=== PATIENT | male | born 1980 | race African-American/Black ===

== ENCOUNTER 2016-10-22 11:08 | Emergency (ER) | payer OTHER ==
[~2016-10-22] VITALS: Ht 170.2 cm; Wt 88.0 kg
[2016-10-22] VITALS (7 sets, daily range): BP systolic 90–126; BP diastolic 42–79; PULSE 16–133; RESP 16–20; TEMP 98.9; O2SAT 97–98
[~2016-10-22 11:08] MED LIST: ALUM5LIQ PO; DICY1TAB26 PO
[2016-10-22] MEDS ORDERED: LORazepam 2 MG/ML VIAL IV PUSH ONE (11:15)
[2016-10-22] MEDS ORDERED: SODIUM CHLOR 0.9% 1000 ML INJ 1,000 ML IV SCH (11:16)
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
[2016-10-22] MEDS ORDERED: SODIUM CHLORIDE 0.9% FLUSH 5 ML FLUSH IVF PRN (11:30)
[2016-10-22 11:51] LABS: AUTOMATED NEUTROPHIL # 6.8 TH/MM3 (1.8-7.7); BASOPHIL # 0.1 TH/MM3 (0-0.2); BASOPHIL % 0.9 % (0.0-2.0); EOSINOPHIL # 0.1 TH/MM3 (0-0.4); EOSINOPHIL % 0.6 % (0.0-4.0); HEMO FLAGS DIFF FINAL; LYMPH % 28.2 % (9.0-44.0); LYMPHOCYTE # 3.1 TH/MM3 (1.0-4.8); MEAN CELL VOLUME 78.8 FL (80.0-100.0); MEAN CORPUSCULAR HEMOGLOBIN 27.5 PG (27.0-34.0); MEAN CORPUSCULAR HGB CONC 34.9 % (32.0-36.0); MONO % 7.2 % (0.0-8.0); NEUT % 63.1 % (16.0-70.0); PLATELET COUNT 238 TH/MM3 (150-450); RED BLOOD COUNT 5.08 MIL/MM3 (4.50-5.90); RED CELL DISTRIBUTION WIDTH 13.9 % (11.6-17.2); WHITE BLOOD COUNT 10.8 TH/MM3 (4.0-11.0)
[2016-10-22 11:59] LABS: ALT (GPT) 55 U/L (12-78); ANION GAP 12 MEQ/L (5-15); AST (GOT) 63 U/L (15-37); BLOOD UREA NITROGEN 8 MG/DL (7-18); CHLORIDE 106 MEQ/L (98-107); GLOMERULAR FILTRATION RATE 95 ML/MIN (>89); POTASSIUM 3.5 MEQ/L (3.5-5.1); SODIUM (NA) 143 MEQ/L (136-145)
[2016-10-22 12:02] LABS: AMPHETAMINE, URINE NEG (NEG); BARBITURATES, URINE NEG (NEG); COCAINE, URINE POS (NEG)
[2016-10-22 12:12] LABS: ALKALINE PHOSPHATASE 57 U/L (45-117); CREATINE KINASE 2467 U/L (39-308); TOTAL BILIRUBIN ADULT 0.3 MG/DL (0.2-1.0)
[2016-10-22 12:27] LABS: CKMB 9.6 NG/ML (0.5-3.6)
[2016-10-22] MEDS ORDERED: SODIUM CHLOR 0.9% 1000 ML INJ 1,000 ML IV ONE ×2 (12:30)
--- NOTE | 2016-10-22 14:27 | EKG ---
Date Performed: 10/22/2016 Time Performed: 11:36:38 PTAGE: 35 years EKG: SINUS TACHYCARDIA WITH SHORT MN INTERVAL ABNORMAL RHYTHM ECG Compared to prior tracing no s ignificant change PREVIOUS TRACING : 08/11/2015 21.04 DOCTOR: Carrington Kyle Interpretating Date/Time 10/22/2016 14:26:01
[2016-10-22 18:15] LABS: CKMB 7.6 NG/ML (0.5-3.6)
== END 2016-10-22 22:47 | disposition home or self-care (01) ==
LOC: NEPE 11:08
DX: F14.10 Cocaine abuse, uncomplicated (principal); F12.10 Cannabis abuse, uncomplicated; F10.10 Alcohol abuse, uncomplicated; R00.0 Tachycardia, unspecified; Y90.8 Blood alcohol level of 240 mg/100 ml or more
CPT/HCPCS: 80053; 80307; 80320; 82550; 82552; 85025; 93005; 96361; 96374; 99284; J2060; J7030

== ENCOUNTER 2016-11-28 00:10 | Emergency (ER) | payer SELFPAY ==
[~2016-11-28] VITALS: Ht 170.2 cm; Wt 86.0 kg
[2016-11-28 00:12] VITALS: BP 151/88; PULSE 122; RESP 20; TEMP 98.8; O2SAT 96
[2016-11-28] MEDS ORDERED: ACETAMINOPHEN/HYDROcodone 325 MG/5 MG TAB PO ONE (01:30)
[2016-11-28] MEDS ORDERED: ONDANSETRON ODT 4 MG TAB PO ONE (01:30)
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
--- NOTE | 2016-11-28 02:08 | RADRPT ---
EXAM DATE/TIME: 11/28/2016 01:35 [facility] COMPARISON: No previous studies available for comparison. INDICATIONS : Left knee pain. MEDICAL HISTORY : None. SURGICAL HISTORY : None. ENCOUNTER: Initial ACUITY: 1 day PAIN SCORE: 10/10 LOCATION: Left knee. FINDINGS: Four view examination of the left knee demonstrates no evidence of fracture or dislocation. Bony min eralization is normal. The articular surfaces are intact. The suprapatellar soft tissues have a nor mal configuration. CONCLUSION: No acute disease. Rayshawn Banks MD on November 28, 2016 at 2:07 Board Certified Radiologist. This report was verified electronically.
--- NOTE | 2016-11-28 02:09 | RADRPT ---
EXAM DATE/TIME: 11/28/2016 01:43 [facility] COMPARISON: No previous studies available for comparison. INDICATIONS : Left hip pain. MEDICAL HISTORY : None. SURGICAL HISTORY : None. ENCOUNTER: Initial ACUITY: 1 day PAIN SCORE: 3/10 LOCATION: Left hip FINDINGS: Examination of the left hip was performed with AP Pelvis. The primary and secondary trabecular patte rn of the femoral neck is intact. The hip joint is of normal width without significant sclerosis or bony hypertrophy. The acetabulum is grossly intact. CONCLUSION: No acute disease. Rayshawn Banks MD on November 28, 2016 at 2:07 Board Certified Radiologist. This report was verified electronically.
[2016-11-28] MEDS ORDERED: NAPR500 PO (02:18)
[2016-11-28 02:44] VITALS: RESP 14
== END 2016-11-28 02:44 | disposition home or self-care (01) ==
LOC: NEPB 00:10
DX: S83.92XA Sprain of unspecified site of left knee, initial encounter (principal); M25.552 Pain in left hip; Z72.0 Tobacco use; Z86.79 Personal history of other diseases of the circulatory system; Z86.59 Personal history of other mental and behavioral disorders; Z87.19 Personal history of other diseases of the digestive system; Y93.83 Activity, rough housing and horseplay
CPT/HCPCS: 73502; 73564; 99283; E0113; L1830

== ENCOUNTER 2016-12-10 21:52 | Emergency (ER) | payer OTHER ==
[~2016-12-10] VITALS: Ht 162.6 cm; Wt 70.0 kg
[~2016-12-10 21:52] MED LIST changes: -ALUM5LIQ PO; -DICY1TAB26 PO; +NAPR500 PO
[2016-12-10 22:10] VITALS: BP 132/108; PULSE 99; RESP 18; TEMP 98.1; O2SAT 100
[2016-12-10 22:55] LABS: AUTOMATED NEUTROPHIL # 7.4 TH/MM3 (1.8-7.7); BASOPHIL # 0.2 TH/MM3 (0-0.2); BASOPHIL % 1.5 % (0.0-2.0); EOSINOPHIL % 0.4 % (0.0-4.0); HEMATOCRIT 45.6 % (39.0-51.0); HEMO FLAGS DIFF FINAL; LYMPH % 31.6 % (9.0-44.0); LYMPHOCYTE # 3.8 TH/MM3 (1.0-4.8); MEAN CELL VOLUME 84.3 FL (80.0-100.0); MEAN CORPUSCULAR HGB CONC 33.3 % (32.0-36.0); MONO % 4.7 % (0.0-8.0); NEUT % 61.8 % (16.0-70.0); PLATELET COUNT 284 TH/MM3 (150-450); RED BLOOD COUNT 5.41 MIL/MM3 (4.50-5.90); RED CELL DISTRIBUTION WIDTH 15.1 % (11.6-17.2); WHITE BLOOD COUNT 11.9 TH/MM3 (4.0-11.0)
[2016-12-10 23:18] LABS: AMPHETAMINE, URINE NEG (NEG); BARBITURATES, URINE NEG (NEG); COCAINE, URINE POS (NEG)
[2016-12-10 23:20] VITALS: BP 148/98; PULSE 89; RESP 18; O2SAT 98
[2016-12-10 23:25] LABS: ALKALINE PHOSPHATASE 48 U/L (45-117); ALT (GPT) 42 U/L (12-78); ANION GAP 11 MEQ/L (5-15); AST (GOT) 46 U/L (15-37); BICARBONATE 26.1 MEQ/L (21.0-32.0); BLOOD UREA NITROGEN 7 MG/DL (7-18); CHLORIDE 105 MEQ/L (98-107); GLOMERULAR FILTRATION RATE 100 ML/MIN (>89); POTASSIUM 3.6 MEQ/L (3.5-5.1); SODIUM (NA) 142 MEQ/L (136-145); TOTAL BILIRUBIN ADULT 0.3 MG/DL (0.2-1.0)
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
[2016-12-11 03:00] VITALS: BP 138/74; PULSE 87; RESP 18; O2SAT 98
[2016-12-11] MEDS ORDERED: ACETAMINOPHEN 325 MG TAB PO ONE (04:30)
[2016-12-11 06:24] VITALS: BP 145/88; PULSE 82; RESP 18; O2SAT 99
[2016-12-11 09:41] VITALS: BP 124/64; PULSE 82; RESP 16; O2SAT 98
[2016-12-11 11:19] VITALS: BP 109/52; PULSE 92; RESP 18; TEMP 96.5; O2SAT 97
[2016-12-11 17:43] VITALS: BP 120/55; PULSE 68; RESP 18; TEMP 96.7; O2SAT 98
[2016-12-11 22:29] VITALS: BP 121/60; PULSE 53; RESP 17; O2SAT 98
[2016-12-12 02:28] VITALS: BP 118/59; PULSE 59; RESP 19; O2SAT 98
[2016-12-12 06:34] VITALS: BP 130/76; PULSE 53; RESP 18; O2SAT 97
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
[2016-12-13] MEDS ORDERED: IBUP-232 PO (11:08)
== END 2016-12-12 10:12 | disposition home or self-care (01) ==
LOC: NEPA 21:52 → NEPJ 12-12 10:12
DX: F39 Unspecified mood [affective] disorder (principal); F19.10 Other psychoactive substance abuse, uncomplicated; F43.25 Adjustment disorder with mixed disturbance of emotions and conduct; R01.1 Cardiac murmur, unspecified; Z72.0 Tobacco use; F14.90 Cocaine use, unspecified, uncomplicated
CPT/HCPCS: 80053; 80307; 80320; 85025; 99283

== ENCOUNTER 2016-12-13 05:33 | Emergency (ER) | payer SELFPAY ==
[~2016-12-13] VITALS: Ht 170.2 cm; Wt 70.0 kg
[2016-12-13 05:35] VITALS: BP 164/76; PULSE 117; RESP 23; TEMP 99.6; O2SAT 96
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
[2016-12-13] MEDS ORDERED: DIPHTH/TETANUS/ACEL PERTUSSIS (BOOSTER) 0.5 ML VIAL/PFS IM ONE (06:45)
[2016-12-13] MEDS ORDERED: ceFAZolin 2 GM PREMIX 50 ML IV ONE (06:45)
[2016-12-13] MEDS ORDERED: ONDANSETRON HCL 4 MG/2 ML VIAL IV ONE (06:45)
[2016-12-13] MEDS ORDERED: MORPHINE SULFATE 4 MG/ML INJ IV PUSH ONE (06:45)
[2016-12-13] MEDS ORDERED: SODIUM CHLOR 0.9% 1000 ML INJ 1,000 ML IV ONE (06:45)
[2016-12-13 06:53] LABS: AUTOMATED NEUTROPHIL # 18.6 TH/MM3 (1.8-7.7); BASOPHIL # 0.1 TH/MM3 (0-0.2); BASOPHIL % 0.6 % (0.0-2.0); EOSINOPHIL # 0.1 TH/MM3 (0-0.4); EOSINOPHIL % 0.5 % (0.0-4.0); HEMATOCRIT 46.2 % (39.0-51.0); HEMO FLAGS DIFF FINAL; LYMPH % 10.7 % (9.0-44.0); LYMPHOCYTE # 2.4 TH/MM3 (1.0-4.8); MEAN CELL VOLUME 85.5 FL (80.0-100.0); MEAN CORPUSCULAR HGB CONC 32.7 % (32.0-36.0); MONO % 4.2 % (0.0-8.0); PLATELET COUNT 294 TH/MM3 (150-450); RED CELL DISTRIBUTION WIDTH 15.2 % (11.6-17.2); WHITE BLOOD COUNT 22.1 TH/MM3 (4.0-11.0)
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
[2016-12-13 07:06] LABS: APTT (PATIENT) 24.9 SEC (24.3-30.1); INTERNATIONAL NORMALIZED RATIO 1.2 RATIO; PROTHROMBIN TIME - PATIENT 13.8 SEC (9.8-11.6)
[2016-12-13 07:10] LABS: ALKALINE PHOSPHATASE 50 U/L (45-117); TOTAL BILIRUBIN ADULT 0.3 MG/DL (0.2-1.0)
[2016-12-13 07:11] LABS: ALT (GPT) 43 U/L (12-78); ANION GAP 18 MEQ/L (5-15); AST (GOT) 36 U/L (15-37); BICARBONATE 17.9 MEQ/L (21.0-32.0); BLOOD UREA NITROGEN 6 MG/DL (7-18); CHLORIDE 104 MEQ/L (98-107); GLOMERULAR FILTRATION RATE 86 ML/MIN (>89); POTASSIUM 3.7 MEQ/L (3.5-5.1); SODIUM (NA) 140 MEQ/L (136-145)
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
[2016-12-13 08:57] VITALS: BP 127/86; PULSE 95; RESP 18; O2SAT 100
--- NOTE | 2016-12-13 10:14 | PD ---
Physical Exam Narrative Received sign out from previous team to reevaluate patient. Please see previous provider's note for further details. Pt reevaluated at bedside and still unable to fully open his eye due to eyelid swelling. From what I can see, I do not see hyphema but it was very limited. Bedside ocular US was completed by me and I can see that pt is able to move his extroocular muscles. There is no retinal or lens detachment. CXR negative. Xray pelvis negative. Xray right tib/fib negative. CT cspine negative. CT brain showed preseptal swelling over left globe. Globe is intact. No acute ICH. CT MF showed preseptal swelling as well. Chronic sinusitis. No acute fracture. Pt was given zofran, IVF NS, and morphine 4mg IV by previous team. Instructed pt to follow up with ophthalmology as outpatient. Return precautions given. Data Data Last Documented VS Vital Signs Date Time Temp Pulse Resp B/P Pulse Ox O2 Delivery O2 Flow Rate FiO2 12/13/16 08:57 95 18 127/86 100 Room Air 12/13/16 05:[address] Brain W/O Iv Contrast(Rout) (12/13/16 05:54) Ct Cerv Spine W/O Contrast (12/13/16 05:54) Ct Facial Bones W/O Iv Cont (12/13/16 05:54) Complete Blood Count With Diff (12/13/16 06:34) Comprehensive Metabolic Panel (12/13/16 06:34) Prothrombin Time / Inr (Pt) (12/13/16 06:34) Act Partial Throm Time (Ptt) (12/13/16 06:34) Urinalysis - C+S If Indicated (12/13/16 06:34) Chest, Single Ap (12/13/16 06:34) Iv Access Insert/Monitor (12/13/16 06:34) Ecg Monitoring (12/13/16 06:34) Oximetry (12/13/16 06:34) Drug Screen, Random Urine (12/13/16 06:34) Alcohol (Ethanol) (12/13/16 06:34) Ondansetron Inj (Zofran Inj) (12/13/16 06:45) Sodium Chlor 0.9% 1000 Ml Inj (Ns 1000 M (12/13/16 06:45) Morphine Inj (Morphine Inj) (12/13/16 06:45) Pelvis, Ap Only (Routine) (12/13/16 06:34) Cefazolin 2 Gm Premix (Ancef 2 Gm Premix (12/13/16 06:45) Xwli-Nml-Rfkvid (Booster) Inj (Boostrix (12/13/16 06:45) Tibia/Fibula (Ap/Lat) (12/13/16 06:34) Ice / Cold Pack PRN (12/13/16 06:46) Ed Poc Ultrasound (12/13/16 ) Labs Laboratory Tests Test 12/13/16 06:00 White Blood Count 22.1 TH/MM3 Red Blood Count 5.40 MIL/MM3 Hemoglobin 15.1 GM/DL Hematocrit 46.2 % Mean Corpuscular Volume 85.5 FL Mean Corpuscular Hemoglobin 28.0 PG Mean Corpuscular Hemoglobin 32.7 % Concent Red Cell Distribution Width 15.2 % Platelet Count 294 TH/MM3 Mean Platelet Volume 8.7 FL Neutrophils (%) (Auto) 84.0 % Lymphocytes (%) (Auto) 10.7 % Monocytes (%) (Auto) 4.2 % Eosinophils (%) (Auto) 0.5 % Basophils (%) (Auto) 0.6 % Neutrophils # (Auto) 18.6 TH/MM3 Lymphocytes # (Auto) 2.4 TH/MM3 Monocytes # (Auto) 0.9 TH/MM3 Eosinophils # (Auto) 0.1 TH/MM3 Basophils # (Auto) 0.1 TH/MM3 CBC Comment DIFF FINAL Differential Comment Prothrombin Time 13.8 SEC Prothromb Time International 1.2 RATIO Ratio Activated Partial 24.9 SEC Thromboplast Time Sodium Level 140 MEQ/L Potassium Level 3.7 MEQ/L Chloride Level 104 MEQ/L Carbon Dioxide Level 17.9 MEQ/L Anion Gap 18 MEQ/L Blood Urea Nitrogen 6 MG/DL Creatinine 1.18 MG/DL Estimat Glomerular Filtration 86 ML/MIN Rate Random Glucose 80 MG/DL Calcium Level 8.6 MG/DL Total Bilirubin 0.3 MG/DL Aspartate Amino Transf 36 U/L (AST/SGOT) Alanine Aminotransferase 43 U/L (ALT/SGPT) Alkaline Phosphatase 50 U/L Total Protein 8.1 GM/DL Albumin 4.1 GM/DL Ethyl Alcohol Level 142 MG/DL MDM Supervised Visit with CLAYTON: No Procedures Procedure Narrative Emergency department ocular ultrasound was performed with patient consent. Linear probe was used in the transverse and sagittal views of the orbit without evidence of retinal detachment, vitreous hemorrhage, or lens dislocation. Diagnosis Primary Impression: Head injury due to trauma Qualified Code: S09.90XA - Head injury due to trauma, initial encounter Additional Impression: Left facial swelling Referrals: Vanita Guzman MD 1 day Patient Instructions: General Instructions Departure Forms: Tests/Procedures Additional Instruction: Please follow up with ophthalmology as outpatient in 1-2 days. Return to the ED if symptoms worsen. Med/Other Pt SpecificInfo: Prescription(s) given Scripts Ibuprofen 600 Mg [id number] Mg PO Q8HR PRN (PAIN) #20 TAB Ref 0 Prov:Angeles Fox DO 12/13/16 Disposition: 01 DISCHARGE HOME Condition: Stable Angeles Fox DO Dec 13, 2016 10:14
[2016-12-13] MEDS ORDERED: IBUP-232 PO (11:08)
== END 2016-12-13 11:54 | disposition home or self-care (01) ==
LOC: NEPE 05:33
DX: S09.90XA Unspecified injury of head, initial encounter (principal); Z23 Encounter for immunization; R51 Headache; M54.2 Cervicalgia; R01.1 Cardiac murmur, unspecified; F17.210 Nicotine dependence, cigarettes, uncomplicated; Y09 Assault by unspecified means
CPT/HCPCS: 70450; 70486; 71010; 72125; 72170; 73590; 80053; 80307; 85025; 85610; 85730; 90471; 90715; 96374; 96375; 99284; J0690; J2270; J2405; J7030; L3260

== ENCOUNTER 2017-01-11 02:55 | Emergency (ER) | payer SELFPAY ==
[~2017-01-11] VITALS: Ht 170.2 cm; Wt 73.0 kg
[~2017-01-11 02:55] MED LIST changes: +IBUP-232 PO; -NAPR500 PO
[2017-01-11 02:57] VITALS: BP 163/91; PULSE 128; RESP 22; TEMP 98.4; O2SAT 98
[2017-01-11 03:17] VITALS: BP 161/88; PULSE 110; RESP 18; TEMP 98.8; O2SAT 97
[2017-01-11] MEDS ORDERED: SODIUM CHLOR 0.9% 1000 ML INJ 1,000 ML IV SCH (03:58)
[2017-01-11] MEDS ORDERED: ONDANSETRON HCL 4 MG/2 ML VIAL IVP ONE (04:00)
[2017-01-11] MEDS ORDERED: FAMOTIDINE 20 MG/2 ML VIAL IV PUSH ONE (04:00)
[2017-01-11] MEDS ORDERED: ALUMINUM/MAGNESIUM/SIMETH 30 ML CUP PO ONE (04:00)
[2017-01-11] MEDS ORDERED: SODIUM CHLORIDE 0.9% FLUSH 10 ML FLUSH IV FLUSH PRN (04:00)
[2017-01-11] MEDS ORDERED: LIDOCAINE VISCOUS 2% SOLN 15 ML UDC PO ONE (04:00)
[2017-01-11 04:22] LABS: AUTOMATED NEUTROPHIL # 7.5 TH/MM3 (1.8-7.7); BASOPHIL # 0.1 TH/MM3 (0-0.2); BASOPHIL % 0.6 % (0.0-2.0); EOSINOPHIL # 0.3 TH/MM3 (0-0.4); EOSINOPHIL % 2.6 % (0.0-4.0); HEMATOCRIT 46.1 % (39.0-51.0); HEMO FLAGS DIFF FINAL; LYMPH % 28.9 % (9.0-44.0); LYMPHOCYTE # 3.5 TH/MM3 (1.0-4.8); MEAN CELL VOLUME 84.8 FL (80.0-100.0); MEAN CORPUSCULAR HEMOGLOBIN 27.8 PG (27.0-34.0); MEAN CORPUSCULAR HGB CONC 32.8 % (32.0-36.0); MONO % 6.5 % (0.0-8.0); NEUT % 61.4 % (16.0-70.0); PLATELET COUNT 230 TH/MM3 (150-450); RED BLOOD COUNT 5.44 MIL/MM3 (4.50-5.90); RED CELL DISTRIBUTION WIDTH 14.7 % (11.6-17.2); WHITE BLOOD COUNT 12.2 TH/MM3 (4.0-11.0)
[2017-01-11 04:24] LABS: APTT (PATIENT) 27.1 SEC (24.3-30.1); INTERNATIONAL NORMALIZED RATIO 1.1 RATIO; PROTHROMBIN TIME - PATIENT 11.7 SEC (9.8-11.6)
--- NOTE | 2017-01-11 04:54 | PD ---
HPI Chief Complaint: Abdominal Pain Time Seen by Provider: 03:26 Travel History International Travel<30 days: No Contact w/Intl Traveler<30days: No Traveled to known affect area: No History of Present Illness HPI Patient is a 36 year old male who comes in complaining of abdominal pain. He says he has 2 ulcers and they are causing him pain. He says the pain has been going on for the past 4 days. He says he tried taking some Tums, but this didn' t help. He also took Goody powder, which she says made it worse. He also reports using cocaine and Dilaudid. He says he's had some nausea and vomiting. He says he has had black stools. He denies fever or chills. PFSH Past Medical History Arthritis: No Asthma: No Anxiety: Yes Heart Rhythm Problems: No Cardiovascular Problems: Yes (HEART MURMUR) High Cholesterol: No Chest Pain: No Congestive Heart Failure: No COPD: No Cerebrovascular Accident: No Diabetes: No Diminished Hearing: No Gastrointestinal Disorders: Yes (GASTRITIS) GERD: No Genitourinary: No Headaches: No Hepatitis: No Hiatal Hernia: No Hypertension: No Kidney Stones: No Musculoskeletal: No Neurologic: No Psychiatric: Yes Reproductive: No Respiratory: No Immunizations Current: Yes Migraines: No Myocardial Infarction: No Renal Failure: No Seizures: No Sleep Apnea: No Ulcer: Yes (stomach) PNEUMOCCOCAL Vaccine (Year): 2 Past Surgical History Abdominal Surgery: No Appendectomy: No Cardiac Surgery: No Cholecystectomy: No Ear Surgery: No Endocrine Surgery: No Eye Surgery: No Genitourinary Surgery: No Neurologic Surgery: No Oral Surgery: No Thoracic Surgery: No Other Surgery: Yes (RIGHT WRIST R/T INJURY) Social History Alcohol Use: Yes (2 fifths a day and 2 cases a day) Tobacco Use: Yes Substance Use: Yes (cocaine daily, marijuana daily, ) Allergies-Medications (Allergen,Severity, Reaction): Coded Allergies: No Known Allergies (Verified , 01/11/17) Reported Meds & Prescriptions Reported Meds & Active Scripts Active Zantac (Ranitidine HCl) 150 Mg Tab 150 Mg PO BID Ibuprofen 600 Mg Tab 600 Mg PO Q8HR PRN Review of Systems Except as stated in HPI: all other systems reviewed are Neg General / Constitutional: No: Fever, Chills Cardiovascular: No: Chest Pain or Discomfort Respiratory: No: Shortness of Breath Gastrointestinal: Positive: Nausea, Vomiting, Abdominal Pain Musculoskeletal: No: Edema, Pain Skin: No Rash, No Change in Pigmentation Neurologic: No: Weakness, Dizziness Physical Exam Narrative GENERAL: Awake and alert, in no acute distress. SKIN: Focused skin assessment warm/dry. HEAD: Atraumatic. Normocephalic. EYES: Pupils equal and round. No scleral icterus. ENT: No nasal bleeding or discharge. Mucous membranes pink and moist. NECK: Trachea midline. No JVD. CARDIOVASCULAR: Regular rate and rhythm. No murmur appreciated. RESPIRATORY: No accessory muscle use. Clear to auscultation. Breath sounds equal bilaterally. GASTROINTESTINAL: Abdomen soft, nondistended. Mild diffuse tenderness to palpation. No rebound or guarding. RECTAL: performed in the presence of male prawn trawler hand. No fissure, hemorrhoids or masses. Brown stool. MUSCULOSKELETAL: No obvious deformities. No clubbing. No cyanosis. No edema. NEUROLOGICAL: Awake and alert. No obvious cranial nerve deficits. Motor grossly within normal limits. Normal speech. PSYCHIATRIC: Appropriate mood and affect; insight and judgment normal. Data Data Last Documented VS Vital Signs Date Time Temp Pulse Resp B/P Pulse Ox O2 Delivery O2 Flow Rate FiO2 01/11/17 05:53 98.2 88 16 160/88 99 01/11/17 03:17 Room Air Orders Basic Metabolic Panel (Bmp) (01/11/17 03:58) Complete Blood Count With Diff (01/11/17 03:58) Lipase (01/11/17 03:58) Prothrombin Time / Inr (Pt) (01/11/17 03:58) Act Partial Throm Time (Ptt) (01/11/17 03:58) Iv Access Insert/Monitor (01/11/17 03:58) Ecg Monitoring (01/11/17 03:58) Oximetry (01/11/17 03:58) Ondansetron Inj (Zofran Inj) (01/11/17 04:00) Sodium Chlor 0.9% 1000 Ml Inj (Ns 1000 M (01/11/17 03:58) Sodium Chloride 0.9% Flush (Ns Flush) (01/11/17 04:00) Famotidine Inj (Pepcid Inj) (01/11/17 04:00) Al-Mag Hy-Si 40-40-4 Mg/Ml Liq (Mag-Al P (01/11/17 04:00) Lidocaine 2% Viscous (Xylocaine 2% Visco (01/11/17 04:00) Labs Laboratory Tests Test 01/11/17 04:00 White Blood Count 12.2 TH/MM3 Red Blood Count 5.44 MIL/MM3 Hemoglobin 15.1 GM/DL Hematocrit 46.1 % Mean Corpuscular Volume 84.8 FL Mean Corpuscular Hemoglobin 27.8 PG Mean Corpuscular Hemoglobin 32.8 % Concent Red Cell Distribution Width 14.7 % Platelet Count 230 TH/MM3 Mean Platelet Volume 8.6 FL Neutrophils (%) (Auto) 61.4 % Lymphocytes (%) (Auto) 28.9 % Monocytes (%) (Auto) 6.5 % Eosinophils (%) (Auto) 2.6 % Basophils (%) (Auto) 0.6 % Neutrophils # (Auto) 7.5 TH/MM3 Lymphocytes # (Auto) 3.5 TH/MM3 Monocytes # (Auto) 0.8 TH/MM3 Eosinophils # (Auto) 0.3 TH/MM3 Basophils # (Auto) 0.1 TH/MM3 CBC Comment DIFF FINAL Differential Comment Prothrombin Time 11.7 SEC Prothromb Time International 1.1 RATIO Ratio Activated Partial 27.1 SEC Thromboplast Time Sodium Level 142 MEQ/L Potassium Level 3.8 MEQ/L Chloride Level 108 MEQ/L Carbon Dioxide Level 22.5 MEQ/L Anion Gap 12 MEQ/L Blood Urea Nitrogen 10 MG/DL Creatinine 0.94 MG/DL Estimat Glomerular Filtration 111 ML/MIN Rate Random Glucose 82 MG/DL Calcium Level 8.2 MG/DL Lipase 269 U/L [facility] Medical Decision Making Medical Screen Exam Complete: Yes Emergency Medical Condition: Yes Differential Diagnosis gastritis vs GERD vs pancreatitis Narrative Course Patient is a 36 year old male who comes in complaining of abdominal pain. Exam shows mild diffuse tenderness. IV established, labs sent. Labs show no acute abnormalities. Given IVF, GI cocktail. Patient ate without any problems. Discharged with prescription for Zantac. Advised to avoid spicy foods, caffeine , drugs and alcohol. Advised to drink plenty of fluids. Advised to follow up with his doctors. Advised to return to the ED as needed for any worsening symptoms. Diagnosis Primary Impression: Abdominal pain Qualified Code: R10.13 - Epigastric pain Patient Instructions: Abdominal Pain (ED), Gastroesophageal Reflux Disease (ED) , General Instructions Additional Instructions: Follow up with a primary care doctor. Eat a bland diet. Take Zantac for acid reflux. Return to the ED as needed for any worsening symptoms. Scripts Ranitidine (Zantac)150 Mg [id number] Mg PO BID #60 TAB Ref 0 Prov:Neha West MD 01/11/17 Disposition: 01 DISCHARGE HOME Condition: Stable Neha West MD Jan 11, 2017 04:54
[2017-01-11 04:59] LABS: BICARBONATE 22.5 MEQ/L (21.0-32.0); POTASSIUM 3.8 MEQ/L (3.5-5.1)
[2017-01-11] MEDS ORDERED: ZANT150T2 PO (05:46)
[2017-01-11 05:53] VITALS: BP 160/88; TEMP 98.2
== END 2017-01-11 06:06 | disposition home or self-care (01) ==
LOC: NEPC 02:55
DX: R10.13 Epigastric pain (principal)
CPT/HCPCS: 80048; 83690; 85025; 85610; 85730; 96361; 96374; 96375; 99284; J2405; J7030

== ENCOUNTER 2017-02-24 03:59 | Emergency (ER) | payer SELFPAY ==
[~2017-02-24] VITALS: Ht 172.7 cm; Wt 75.0 kg
[~2017-02-24 03:59] MED LIST changes: +ZANT150T2 PO
[2017-02-24 04:04] VITALS: BP 134/78; PULSE 116; RESP 16; TEMP 90.4; TEMP 98.4; O2SAT 95
[2017-02-24] MEDS ORDERED: TETANUS/DIPHTHERIA TOXOID ADULT 0.5 ML VIAL IM ONE (04:30)
[2017-02-24] MEDS ORDERED: LIDOCAINE HCL 1% 50 ML VIAL INFIL ONE (04:30)
[2017-02-24 04:45] LABS: AUTOMATED NEUTROPHIL # 8.4 TH/MM3 (1.8-7.7); BASOPHIL # 0.1 TH/MM3 (0-0.2); EOSINOPHIL # 0.3 TH/MM3 (0-0.4); EOSINOPHIL % 2.5 % (0.0-4.0); HEMATOCRIT 46.4 % (39.0-51.0); HEMO FLAGS DIFF FINAL; LYMPH % 30.7 % (9.0-44.0); LYMPHOCYTE # 4.3 TH/MM3 (1.0-4.8); MEAN CELL VOLUME 83.5 FL (80.0-100.0); MEAN CORPUSCULAR HEMOGLOBIN 28.1 PG (27.0-34.0); MEAN CORPUSCULAR HGB CONC 33.6 % (32.0-36.0); MONO % 5.4 % (0.0-8.0); NEUT % 60.4 % (16.0-70.0); PLATELET COUNT 273 TH/MM3 (150-450); RED BLOOD COUNT 5.55 MIL/MM3 (4.50-5.90); RED CELL DISTRIBUTION WIDTH 15.6 % (11.6-17.2); WHITE BLOOD COUNT 13.9 TH/MM3 (4.0-11.0)
[2017-02-24 05:06] LABS: ALKALINE PHOSPHATASE 65 U/L (45-117); TOTAL BILIRUBIN ADULT 0.2 MG/DL (0.2-1.0)
[2017-02-24 05:07] LABS: ALT (GPT) 58 U/L (12-78); ANION GAP 12 MEQ/L (5-15); AST (GOT) 69 U/L (15-37); BICARBONATE 26.3 MEQ/L (21.0-32.0); BLOOD UREA NITROGEN 13 MG/DL (7-18); CHLORIDE 108 MEQ/L (98-107); GLOMERULAR FILTRATION RATE 78 ML/MIN (>89); SODIUM (NA) 146 MEQ/L (136-145)
[2017-02-24 05:08] LABS: ACETAMINOPHEN LESS THAN 2.0 MCG/ML (10.0-30.0)
--- NOTE | 2017-02-24 05:09 | RADRPT ---
EXAM DATE/TIME: 02/24/2017 04:36 [place] COMPARISON: No previous studies available for comparison. INDICATIONS : Laceration to palm of hand and finger. MEDICAL HISTORY : None. SURGICAL HISTORY : None. 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 No acute fracture or dislocation. No radiopaq ue foreign body. CONCLUSION: 1. No acute findings. Skyler Zapien MD on February 24, 2017 at 5:06 Board Certified Radiologist. This report was verified electronically.
--- NOTE | 2017-02-24 05:23 | PD ---
Physical Exam Time Seen by Provider: 05:22 Data Data Last Documented VS Vital Signs Date Time Temp Pulse Resp B/P Pulse Ox O2 Delivery O2 Flow Rate FiO2 02/24/17 04:04 98.4 116 16 134/78 95 Room Air Orders Complete Blood Count With Diff (02/24/17 04:27) Comprehensive Metabolic Panel (02/24/17 04:27) Psych Screen (02/24/17 04:27) Drug Screen, Random Urine (02/24/17 04:27) Alcohol (Ethanol) (02/24/17 04:27) Salicylates (Aspirin) (02/24/17 04:27) Tylenol (Acetaminophen) (02/24/17 04:27) Tetanus/Diphtheria Tox Adult (Tetanus/Di (02/24/17 04:30) Hand, Complete ([id number]) (02/24/17 ) Lidocaine 1% Inj (50 Ml) (Xylocaine 1% I (02/24/17 04:30) Labs Laboratory Tests Test 02/24/17 04:35 White Blood Count 13.9 TH/MM3 Red Blood Count 5.55 MIL/MM3 Hemoglobin 15.6 GM/DL Hematocrit 46.4 % Mean Corpuscular Volume 83.5 FL Mean Corpuscular Hemoglobin 28.1 PG Mean Corpuscular Hemoglobin 33.6 % Concent Red Cell Distribution Width 15.6 % Platelet Count 273 TH/MM3 Mean Platelet Volume 8.0 FL Neutrophils (%) (Auto) 60.4 % Lymphocytes (%) (Auto) 30.7 % Monocytes (%) (Auto) 5.4 % Eosinophils (%) (Auto) 2.5 % Basophils (%) (Auto) 1.0 % Neutrophils # (Auto) 8.4 TH/MM3 Lymphocytes # (Auto) 4.3 TH/MM3 Monocytes # (Auto) 0.8 TH/MM3 Eosinophils # (Auto) 0.3 TH/MM3 Basophils # (Auto) 0.1 TH/MM3 CBC Comment DIFF FINAL Differential Comment Sodium Level 146 MEQ/L Potassium Level 4.0 MEQ/L Chloride Level 108 MEQ/L Carbon Dioxide Level 26.3 MEQ/L Anion Gap 12 MEQ/L Blood Urea Nitrogen 13 MG/DL Creatinine 1.28 MG/DL Estimat Glomerular Filtration 78 ML/MIN Rate Random Glucose 95 MG/DL Calcium Level 8.4 MG/DL Total Bilirubin 0.2 MG/DL Aspartate Amino Transf 69 U/L (AST/SGOT) Alanine Aminotransferase 58 U/L (ALT/SGPT) Alkaline Phosphatase 65 U/L Total Protein 8.0 GM/DL Albumin 3.9 GM/DL Salicylates Level 2.3 MG/DL Acetaminophen Level LESS THAN 2.0 MCG/ML Ethyl Alcohol Level 336 MG/DL MDM Medical Record Reviewed: Yes Supervised Visit with CLAYTON: No Procedures Procedure Narrative LACERATION LOCATION: Right fifth digit LENGTH: 1 cm NUMBER OF STITCHES/BRODY: 1 horizontal mattress REPAIR: The area of the laceration was prepped with Betadine and sterilely draped. The laceration was infiltrated with 1% lidocaine without epinephrine. The wound was copiously irrigated and explored without evidence of foreign body , tendon injury or neurovascular injury. The wound was closed using 4-0 Prolene. This was a single layer repair. A sterile dressing was applied. The patient was advised to keep the dressing clean and dry. Patient tolerated the procedure well. LACERATION LOCATION: Right palmar surface LENGTH: 1 cm NUMBER OF STITCHES/BRODY: 1 suture REPAIR: The area of the laceration was prepped with Betadine and sterilely draped. The laceration was infiltrated with 1% lidocaine without epinephrine. The wound was copiously irrigated and explored without evidence of foreign body , tendon injury or neurovascular injury. The wound was closed using 4-0 Prolene. This was a single layer repair. A sterile dressing was applied. The patient was advised to keep the dressing clean and dry. Patient tolerated the procedure well. Condition: Stable Marco ARadha FAIR February 24, 2017 05:23
--- NOTE | 2017-02-24 05:31 | PD ---
HPI Chief Complaint: Laceration/Skin Injury Time Seen by Provider: 04:27 Travel History International Travel<30 days: No Contact w/Intl Traveler<30days: No Traveled to known affect area: No History of Present Illness HPI 36-year-old male arrives to the ER after he cut his right fifth finger with a knife. He was trying to hurt himself. He drank alcohol tonight. He states it' s sacrilegious to take his own life and so he has been hurting himself. He states he does not want to live. R fifth finger is constantly painful. He states the pain is severe. he denies drug use. PFSH Past Medical History Arthritis: No Asthma: No Anxiety: Yes Heart Rhythm Problems: No Cardiovascular Problems: Yes (HEART MURMUR) High Cholesterol: No Chest Pain: No Congestive Heart Failure: No COPD: No Cerebrovascular Accident: No Diabetes: No Diminished Hearing: No Gastrointestinal Disorders: Yes (GASTRITIS) GERD: No Genitourinary: No Headaches: No Hepatitis: No Hiatal Hernia: No Hypertension: No Kidney Stones: No Musculoskeletal: No Neurologic: No Psychiatric: Yes Reproductive: No Respiratory: No Immunizations Current: Yes Migraines: No Myocardial Infarction: No Renal Failure: No Seizures: No Sleep Apnea: No Ulcer: Yes (stomach) Influenza Vaccination: No PNEUMOCCOCAL Vaccine (Year): 2 Past Surgical History Abdominal Surgery: No Appendectomy: No Cardiac Surgery: No Cholecystectomy: No Ear Surgery: No Endocrine Surgery: No Eye Surgery: No Genitourinary Surgery: No Neurologic Surgery: No Oral Surgery: No Thoracic Surgery: No Other Surgery: Yes (RIGHT WRIST R/T INJURY) Social History Alcohol Use: Yes (2 fifths a day and 2 cases a day) Tobacco Use: Yes Substance Use: Yes (cocaine daily, marijuana daily, ) Allergies-Medications (Allergen,Severity, Reaction): Coded Allergies: No Known Allergies (Verified , 01/11/17) Reported Meds & Prescriptions Reported Meds & Active Scripts Active Zantac (Ranitidine HCl) 150 Mg Tab 150 Mg PO BID Ibuprofen 600 Mg Tab 600 Mg PO Q8HR PRN Review of Systems Except as stated in HPI: all other systems reviewed are Neg Physical Exam Narrative GENERAL: 36 yo M, WNWD, NAD SKIN: Warm and dry. HEAD: Atraumatic. Normocephalic. EYES: Pupils equal and round. No scleral icterus. No injection or drainage. ENT: No nasal bleeding or discharge. Mucous membranes pink and moist. NECK: Trachea midline. No JVD. CARDIOVASCULAR: Regular rate and rhythm. RESPIRATORY: No accessory muscle use. Clear to auscultation. Breath sounds equal bilaterally. GASTROINTESTINAL: Abdomen soft, non-tender, nondistended. Hepatic and splenic margins not palpable. MUSCULOSKELETAL: Extremities without clubbing, cyanosis, or edema. No obvious deformities. Approx 1cm laceration palmar aspect middle 5th phalanx, 1cm laceration ulnar aspect left fifth metacarpal. No tendon involvement per PA evaluation at time of suture closure. NEUROLOGICAL: Awake and alert. No obvious cranial nerve deficits. Motor grossly within normal limits. Five out of 5 muscle strength in the arms and legs. Normal speech. PSYCHIATRIC: + SI. + EtOH. Data Data Last Documented VS Vital Signs Date Time Temp Pulse Resp B/P Pulse Ox O2 Delivery O2 Flow Rate FiO2 02/24/17 04:04 98.4 116 16 134/78 95 Room Air VS reviewed Orders Complete Blood Count With Diff (02/24/17 04:27) Comprehensive Metabolic Panel (02/24/17 04:27) Psych Screen (02/24/17 04:27) Drug Screen, Random Urine (02/24/17 04:27) Alcohol (Ethanol) (02/24/17 04:27) Salicylates (Aspirin) (02/24/17 04:27) Tylenol (Acetaminophen) (02/24/17 04:27) Tetanus/Diphtheria Tox Adult (Tetanus/Di (02/24/17 04:30) Hand, Complete (Pje0tld) (02/24/17 ) Lidocaine 1% Inj (50 Ml) (Xylocaine 1% I (02/24/17 04:30) Labs Laboratory Tests Test 02/24/17 04:35 White Blood Count 13.9 TH/MM3 Red Blood Count 5.55 MIL/MM3 Hemoglobin 15.6 GM/DL Hematocrit 46.4 % Mean Corpuscular Volume 83.5 FL Mean Corpuscular Hemoglobin 28.1 PG Mean Corpuscular Hemoglobin 33.6 % Concent Red Cell Distribution Width 15.6 % Platelet Count 273 TH/MM3 Mean Platelet Volume 8.0 FL Neutrophils (%) (Auto) 60.4 % Lymphocytes (%) (Auto) 30.7 % Monocytes (%) (Auto) 5.4 % Eosinophils (%) (Auto) 2.5 % Basophils (%) (Auto) 1.0 % Neutrophils # (Auto) 8.4 TH/MM3 Lymphocytes # (Auto) 4.3 TH/MM3 Monocytes # (Auto) 0.8 TH/MM3 Eosinophils # (Auto) 0.3 TH/MM3 Basophils # (Auto) 0.1 TH/MM3 CBC Comment DIFF FINAL Differential Comment Sodium Level 146 MEQ/L Potassium Level 4.0 MEQ/L Chloride Level 108 MEQ/L Carbon Dioxide Level 26.3 MEQ/L Anion Gap 12 MEQ/L Blood Urea Nitrogen 13 MG/DL Creatinine 1.28 MG/DL Estimat Glomerular Filtration 78 ML/MIN Rate Random Glucose 95 MG/DL Calcium Level 8.4 MG/DL Total Bilirubin 0.2 MG/DL Aspartate Amino Transf 69 U/L (AST/SGOT) Alanine Aminotransferase 58 U/L (ALT/SGPT) Alkaline Phosphatase 65 U/L Total Protein 8.0 GM/DL Albumin 3.9 GM/DL Salicylates Level 2.3 MG/DL Acetaminophen Level LESS THAN 2.0 MCG/ML Ethyl Alcohol Level 336 MG/DL MDM Medical Decision Making Medical Screen Exam Complete: Yes Emergency Medical Condition: Yes Medical Record Reviewed: Yes Differential Diagnosis Altered mental status/psychosis due to infection/environmental exposure/ metabolic abnormality, polypharmacy, alcohol abuse/intoxication, illicit or prescribed drug abuse, malingering/secondary gain, non-organic psychiatric disease, flexor tendon injury Narrative Course CBC & BMP Diagram 02/24/17 04:35 LFTs essentially normal EtOH 336 Salicylates 2.3 EtOH 336 The history of present illness, ROS, physical exam, review of records and medical workup performed for today's visit have reasonably safely excluded organic etiologies for the patient's presenting complaint. We will continue to monitor the patient carefully in the ER until time of evaluation by the psychiatry service. We are available for any additional medical assistance if needed during the patient's ER course. Disposition per discretion of psychiatry is appreciated. Diagnosis Primary Impression: Alcohol intoxication Qualified Code: F10.929 - Alcohol intoxication, with unspecified complication Additional Impressions: Intentional self-harm by knife Qualified Code: X78.1XXA - Intentional self-harm by knife, initial encounter Laceration of finger Qualified Code: S61.219A - Laceration of finger, initial encounter Condition: Stable Hawk Headley. MD February 24, 2017 05:31
[2017-02-24 10:01] VITALS: BP 133/68; PULSE 99; RESP 16; O2SAT 98
[2017-02-24] MEDS ORDERED: ACETAMINOPHEN 325 MG TAB PO ONE (10:15)
[2017-02-24 10:29] LABS: AMPHETAMINE, URINE NEG (NEG); BARBITURATES, URINE NEG (NEG); COCAINE, URINE POS (NEG)
== END 2017-02-24 17:42 | disposition home or self-care (01) ==
LOC: NEPC 03:59 → NEPJ 17:42
DX: S61.216A Laceration without foreign body of right little finger without damage to nail, initial encounter (principal); F41.9 Anxiety disorder, unspecified; F10.129 Alcohol abuse with intoxication, unspecified; F12.90 Cannabis use, unspecified, uncomplicated; F14.90 Cocaine use, unspecified, uncomplicated; X78.1XXA Intentional self-harm by knife, initial encounter; Z23 Encounter for immunization; Z72.0 Tobacco use
CPT/HCPCS: 73130; 80053; 80307; 85025; 90471; 90714

== ENCOUNTER 2017-04-06 03:20 | Emergency (ER) | payer SELFPAY ==
[~2017-04-06] VITALS: Ht 167.6 cm; Wt 75.0 kg
[2017-04-06 03:24] VITALS: BP 152/96; PULSE 108; RESP 22; TEMP 97.9; O2SAT 99
--- NOTE | 2017-04-06 03:31 | PD ---
HPI Chief Complaint: Alcohol/Drug Intoxication Time Seen by Provider: 03:25 Travel History International Travel<30 days: No Contact w/Intl Traveler<30days: No History of Present Illness HPI EMS BROUGHT IN INTOXICATED (PER PATIENT DRANK TOO MUCH ALCOHOL). HAS NO COMPLAINT, BUT DOES ACKNOWLEDGE THAT HE'S TOO DRUNK TO GO HOME AND STATES THAT HE DOES NOT HAVE A RIDE HOME EITHER. HAS NO ACTUAL COMPLAINT. PFSH Past Medical History Arthritis: No Asthma: No Anxiety: Yes Heart Rhythm Problems: No Cardiovascular Problems: Yes (HEART MURMUR) High Cholesterol: No Chest Pain: No Congestive Heart Failure: No COPD: No Cerebrovascular Accident: No Diabetes: No Diminished Hearing: No Gastrointestinal Disorders: Yes (GASTRITIS) GERD: No Genitourinary: No Headaches: No Hepatitis: No Hiatal Hernia: No Hypertension: No Kidney Stones: No Musculoskeletal: No Neurologic: No Psychiatric: Yes Reproductive: No Respiratory: No Immunizations Current: Yes Migraines: No Myocardial Infarction: No Renal Failure: No Seizures: No Sleep Apnea: No Ulcer: Yes (stomach) PNEUMOCCOCAL Vaccine (Year): 2 Past Surgical History Abdominal Surgery: No Appendectomy: No Cardiac Surgery: No Cholecystectomy: No Ear Surgery: No Endocrine Surgery: No Eye Surgery: No Genitourinary Surgery: No Neurologic Surgery: No Oral Surgery: No Thoracic Surgery: No Other Surgery: Yes (RIGHT WRIST R/T INJURY) Social History Alcohol Use: Yes (2 fifths a day and 2 cases a day) Tobacco Use: Yes Substance Use: Yes (cocaine daily, marijuana daily, ) Allergies-Medications (Allergen,Severity, Reaction): Coded Allergies: No Known Allergies (Verified , 04/06/17) Reported Meds & Prescriptions Reported Meds & Active Scripts Active No Active Prescriptions or Reported Medications Review of Systems ROS Limitations: Intoxication Except as stated in HPI: all other systems reviewed are Neg Physical Exam Narrative GENERAL: SMELL OF ETOH ON BREATH, AND HAS WET CLOTHES ON. SKIN: Warm and dry. HEAD: Atraumatic. Normocephalic. EYES: Pupils equal and round. No scleral icterus. No injection or drainage. ENT: No nasal bleeding or discharge. Mucous membranes pink and moist. NECK: Trachea midline. No JVD. CARDIOVASCULAR: Regular rate and rhythm. RESPIRATORY: No accessory muscle use. Clear to auscultation. Breath sounds equal bilaterally. GASTROINTESTINAL: Abdomen soft, non-tender, nondistended. Hepatic and splenic margins not palpable. MUSCULOSKELETAL: Extremities without clubbing, cyanosis, or edema. No obvious deformities. NEUROLOGICAL: Awake and alert. No obvious cranial nerve deficits. Motor grossly within normal limits. Five out of 5 muscle strength in the arms and legs. Normal speech. PSYCHIATRIC: Appropriate mood and affect; insight and judgment normal. Data Data Last Documented VS [facility] Medical Decision Making Medical Screen Exam Complete: Yes Emergency Medical Condition: No Medical Record Reviewed: Yes Differential Diagnosis HYPOGLYCEMIA V ORTHOSTATIC V ETOH INTOXICATION Narrative Course PATIENT VSS, IS KNOWN TO ONE OF THE STAFF MEMBERS AND HAS A GOOD RELATIONSHIP WITH HIM.... ACCUCEHCK 90'S, NEG ORHTOSTASIS, AMBULATORY WITHOUT DIFFICULTY....ONCE SOBRIETY IS ACHIEVED IN MORNING PATIENT CAN BE CLEARED TO LEAVE UNLESS FAMILY MEMBER CAN PICK HIM UP EARLIER. Diagnosis Primary Impression: INTOXICATION S/P SOBRIETY Scripts No Active Prescriptions or Reported Meds Disposition: DISCHARGE HOME Condition: Stable Zaire Redmond MD Apr 06, 2017 03:31 INTOXICATION S/P SOBRIETY Scripts No Active Prescriptions or Reported Meds Disposition: DISCHARGE HOME Condition: Stable Zaire Redmond MD Apr 06, 2017 03:31
== END 2017-04-06 04:20 | disposition home or self-care (01) ==
LOC: NEPD 03:20
DX: F10.129 Alcohol abuse with intoxication, unspecified (principal); K29.70 Gastritis, unspecified, without bleeding; F41.9 Anxiety disorder, unspecified; Z72.0 Tobacco use
CPT/HCPCS: 99283

== ENCOUNTER 2017-04-24 06:46 | Emergency (ER) | payer SELFPAY ==
[~2017-04-24] VITALS: Ht 167.6 cm; Wt 75.0 kg
[2017-04-24 06:49] VITALS: BP 164/95; PULSE 106; RESP 18; TEMP 98.6; O2SAT 100
[2017-04-24] MEDS ORDERED: SODIUM CHLOR 0.9% 1000 ML INJ 1,000 ML IV ONE (07:00)
[2017-04-24] MEDS ORDERED: PANTOPRAZOLE SODIUM 40 MG VIAL IV PUSH ONE (07:00)
[2017-04-24] MEDS ORDERED: ONDANSETRON HCL 4 MG/2 ML VIAL IV ONE (07:00)
--- NOTE | 2017-04-24 07:04 | PD ---
HPI Chief Complaint: Abdominal Pain Time Seen by Provider: 06:53 Travel History International Travel<30 days: No Contact w/Intl Traveler<30days: No Traveled to known affect area: No History of Present Illness HPI The patient is a 36 year old male who presents to the [facility] emergency department with a history of abdominal pain in the midepigastric and suprapubic area that he reports began 2 days ago. He reports that the pain has been constant. He reports that the pain as a burning sensation at the top of his abdomen and an aching sensation at the bottom of his abdomen. He reports that he has not moved his bowels in the last 2 days. He reports that he normally moves his bowels twice daily. Today he began to have nausea and vomiting 4. The patient reports that he has been told that he is not supposed to drink any alcohol, however he has been drinking alcohol on a daily basis. He reports that he has a history of peptic ulcer disease. He reports that he is also been out this evening using cocaine and [place]. The patient arrives anxious appearing. On review of systems, the patient denies any recent fevers, cough, congestion, neck pain, chest pain, shortness of breath, urinary symptoms, or neurologic symptoms. The patient incidentally reports on review of systems having a bitemporal headache most days of the week. [facility] Past Medical History Narrative Medical The patient's past medical history is significant for peptic ulcer disease, alcohol abuse, polysubstance abuse, anxiety disorder Arthritis: No Asthma: No Anxiety: Yes Heart Rhythm Problems: No Cardiovascular Problems: Yes (HEART MURMUR) High Cholesterol: No Chest Pain: No Congestive Heart Failure: No COPD: No Cerebrovascular Accident: No Diabetes: No Diminished Hearing: No Gastrointestinal Disorders: Yes (GASTRITIS) GERD: No Genitourinary: No Headaches: No Hepatitis: No Hiatal Hernia: No Hypertension: No Kidney Stones: No Musculoskeletal: No Neurologic: No Psychiatric: Yes Reproductive: No Respiratory: No Immunizations Current: Yes Migraines: No Myocardial Infarction: No Renal Failure: No Seizures: No Sleep Apnea: No Ulcer: Yes (stomach) Tetanus Vaccination: < 5 Years Influenza Vaccination: No PNEUMOCCOCAL Vaccine (Year): 2 Past Surgical History Narrative Surgical The patient's past surgical history is significant for right hand surgery, brain surgery related to a prior injury. Abdominal Surgery: No Appendectomy: No Cardiac Surgery: No Cholecystectomy: No Ear Surgery: No Endocrine Surgery: No Eye Surgery: No Genitourinary Surgery: No Neurologic Surgery: No Oral Surgery: No Thoracic Surgery: No Other Surgery: Yes (RIGHT WRIST R/T INJURY) Social History Alcohol Use: Yes (2 fifths a day and 2 cases a day) Tobacco Use: Yes (one half pack per day) Substance Use: Yes (cocaine daily, marijuana daily, ) Allergies-Medications (Allergen,Severity, Reaction): Coded Allergies: No Known Allergies (Verified , 04/06/17) Reported Meds & Prescriptions Reported Meds & Active Scripts Active No Active Prescriptions or Reported Medications Review of Systems Except as stated in HPI: all other systems reviewed are Neg General / Constitutional: No: Fever Eyes: No: Visual changes HENT: No: Headaches Cardiovascular: No: Chest Pain or Discomfort Respiratory: No: Shortness of Breath Gastrointestinal: Positive: Nausea, Vomiting, Abdominal Pain, Constipation, Changes in Bowel Habits, Indigestion, No: Diarrhea, Hematemesis, Hematochezia, Loss of Appetite Genitourinary: No: Dysuria Musculoskeletal: No: Pain Skin: No Rash Neurologic: No: Weakness, Focal Abnormalities, Change in Mentation, Slurred Speech, Sensory Disturbance Psychiatric: Positive: Substance Abuse, No: Depression Endocrine: No: Polydipsia Hematologic/Lymphatic: No: Easy Bruising Physical Exam Narrative General: The patient is a well-developed well-nourished male, anxious appearing on arrival, otherwise in no acute distress. Head and Neck exam: Head is normocephalic atraumatic. Eyes: EOMI, pupils are equal round and reactive to light. Nose: Midline septum with pink mucous membranes Mouth: Dentition unremarkable. Moist mucus membranes. Posterior oropharynx is not erythematous. No tonsillar hypertrophy. Uvula midline. Airway patent. Neck: No palpable lymphadenopathy. No nuchal rigidity. No thyromegaly. Cardiovascular: Sinus tachycardia in the low 100 without murmurs, gallops, or rubs. No pulse deficit to the extremities and simultaneous auscultation and palpation of his radial artery Lungs: Clear to auscultation bilaterally. No wheezes, rhonchi, or rales. Abdomen: Soft, with tenderness on palpation of the midepigastric area and suprapubic area of the abdomen, no other tenderness on palpation of the other quadrants. No guarding, rebound, or rigidity. No tenderness on palpation of McBurney's point. Normal bowel sounds are audible. Negative [place] sign. Extremities: No clubbing, cyanosis, or edema. 2+ pulses in all 4 extremities. No calf tenderness on palpation. Back: No spinous process tenderness to palpation. No costovertebral angle tenderness to palpation. Neurologic Exam: Grossly nonfocal. The patient has pressured speech and is anxious appearing on examination. Skin Exam: No rash noted. Intact skin that is warm and dry. Data Data Last Documented VS Vital Signs Date Time Temp Pulse Resp B/P Pulse Ox O2 Delivery O2 Flow Rate FiO2 04/24/17 06:49 98.6 106 18 164/95 100 Orders Electrocardiogram (04/24/17 06:54) Complete Blood Count With Diff (04/24/17 06:54) Comprehensive Metabolic Panel (04/24/17 06:54) Creatine Kinase (Cpk) (04/24/17 06:54) Ckmb (Isoenzyme) Profile (04/24/17 06:54) Troponin I (04/24/17 06:54) Lipase (04/24/17 06:54) Urinalysis - C+S If Indicated (04/24/17 06:54) Chest, Single Ap (04/24/17 06:54) Iv Access Insert/Monitor (04/24/17 06:54) Ecg Monitoring (04/24/17 06:54) Oximetry (04/24/17 06:54) Drug Screen, Random Urine (04/24/17 06:54) Alcohol (Ethanol) (04/24/17 06:54) Sodium Chlor 0.9% 1000 Ml Inj (Ns 1000 M (04/24/17 07:00) Ondansetron Inj (Zofran Inj) (04/24/17 07:00) Pantoprazole Inj (Protonix Inj) (04/24/17 07:00) MDM Medical Decision Making Medical Screen Exam Complete: Yes Emergency Medical Condition: Yes Medical Record Reviewed: Yes Differential Diagnosis Alcohol-related gastritis, versus cocaine-induced colonic spasms, versus constipation, versus gastroenteritis, versus other viral syndrome Narrative Course During the course of the patients emergency department visit, the patients history, examination, and differential diagnosis were reviewed with the patient. The patient had IV access obtained and blood work sent for analysis. The patient was placed on a textile artist with oximetry and blood pressure monitoring area ECG was ordered per The patient was initially provided normal saline 1 L IV fluid bolus, Zofran 4 mg IV. The patients laboratory studies were pending at the conclusion of my shift. The patient's case was checked out to the oncoming emergency physician to disposition the patient based on the conclusion of the patient's workup. Diagnosis Primary Impression: Abdominal pain Qualified Code: R10.9 - Abdominal pain, unspecified location Additional Impressions: Vomiting Qualified Code: R11.2 - Nausea and vomiting, intractability of vomiting not specified, unspecified vomiting type Polysubstance abuse Scripts No Active Prescriptions or Reported Meds Mari Gallego MD Apr 24, 2017 07:03
[2017-04-24 07:15] LABS: AUTOMATED NEUTROPHIL # 7.5 TH/MM3 (1.8-7.7); BASOPHIL # 0.1 TH/MM3 (0-0.2); BASOPHIL % 0.9 % (0.0-2.0); EOSINOPHIL # 0.1 TH/MM3 (0-0.4); EOSINOPHIL % 1.2 % (0.0-4.0); HEMATOCRIT 49.5 % (39.0-51.0); HEMO FLAGS DIFF FINAL; LYMPH % 20.2 % (9.0-44.0); LYMPHOCYTE # 2.1 TH/MM3 (1.0-4.8); MEAN CELL VOLUME 86.2 FL (80.0-100.0); MEAN CORPUSCULAR HEMOGLOBIN 28.7 PG (27.0-34.0); MEAN CORPUSCULAR HGB CONC 33.3 % (32.0-36.0); MONO % 5.1 % (0.0-8.0); NEUT % 72.6 % (16.0-70.0); PLATELET COUNT 267 TH/MM3 (150-450); RED BLOOD COUNT 5.75 MIL/MM3 (4.50-5.90); RED CELL DISTRIBUTION WIDTH 14.7 % (11.6-17.2); WHITE BLOOD COUNT 10.3 TH/MM3 (4.0-11.0)
--- NOTE | 2017-04-24 07:34 | RADRPT ---
EXAM DATE/TIME: 04/24/2017 06:53 [facility] COMPARISON: CHEST SINGLE AP, December 13, 2016, 6:46. INDICATIONS : Shortness of breath, epigastric pain. MEDICAL HISTORY : Smoker, heart murmur. SURGICAL HISTORY : None. ENCOUNTER: Initial ACUITY: 3 days PAIN SCORE: 10/10 LOCATION: Epigastric FINDINGS: A single view of the chest demonstrates the lungs to be symmetrically aerated without evidence of mas s, infiltrate or effusion. The cardiomediastinal contours are unremarkable. Osseous structures are intact. CONCLUSION: No acute disease. Biju Simental MD on April 24, 2017 at 7:32 Board Certified Radiologist. This report was verified electronically.
[2017-04-24 07:39] LABS: BLOOD, URINE TRACE (NEG); COMMENT (UR) CULT NOT INDICATED; CULTURE IF INDICATED CULT NOT INDICATED; GLUCOSE,URINE NEG (NEG); HYALINE CAST, URINE 1 /lpf (RARE); KETONE, URINE NEG (NEG); NITRITE,URINE NEG (NEG); URINE COLOR YELLOW (YELLW/STRAW)
[2017-04-24 07:41] LABS: ALT (GPT) 40 U/L (12-78)
[2017-04-24 07:43] LABS: ANION GAP 9 MEQ/L (5-15); AST (GOT) 34 U/L (15-37); BICARBONATE 20.4 MEQ/L (21.0-32.0); BLOOD UREA NITROGEN 12 MG/DL (7-18); CHLORIDE 110 MEQ/L (98-107); GLOMERULAR FILTRATION RATE 100 ML/MIN (>89); POTASSIUM 4.1 MEQ/L (3.5-5.1); SODIUM (NA) 139 MEQ/L (136-145)
[2017-04-24 07:44] LABS: AMPHETAMINE, URINE NEG (NEG); BARBITURATES, URINE NEG (NEG); COCAINE, URINE POS (NEG)
[2017-04-24 07:47] LABS: ALKALINE PHOSPHATASE 60 U/L (45-117); CREATINE KINASE 494 U/L (39-308); TOTAL BILIRUBIN ADULT 0.3 MG/DL (0.2-1.0)
[2017-04-24 07:59] LABS: CKMB 1.9 NG/ML (0.5-3.6)
[2017-04-24] MEDS ORDERED: ATROPINE/SCOPOLAM/HYOSCYAM/PB ELIXIR 10 ML CUP PO ONE (08:00)
[2017-04-24] MEDS ORDERED: ALUMINUM/MAGNESIUM/SIMETH 30 ML CUP PO ONE (08:00)
[2017-04-24] MEDS ORDERED: DICY10 PO (08:06)
[2017-04-24] MEDS ORDERED: CARA1TAB6 PO (08:06)
[2017-04-24] MEDS ORDERED: PANT20 PO (08:06)
--- NOTE | 2017-04-24 08:06 | PD ---
Physical Exam Narrative The patient was seen by ED physician and signed out to me. Data Data Last Documented VS Vital Signs Date Time Temp Pulse Resp B/P Pulse Ox O2 Delivery O2 Flow Rate FiO2 04/24/17 06:49 98.6 106 18 164/95 100 Orders Electrocardiogram (04/24/17 06:54) Complete Blood Count With Diff (04/24/17 06:54) Comprehensive Metabolic Panel (04/24/17 06:54) Creatine Kinase (Cpk) (04/24/17 06:54) Ckmb (Isoenzyme) Profile (04/24/17 06:54) Troponin I (04/24/17 06:54) Lipase (04/24/17 06:54) Urinalysis - C+S If Indicated (04/24/17 06:54) Chest, Single Ap (04/24/17 06:54) Iv Access Insert/Monitor (04/24/17 06:54) Ecg Monitoring (04/24/17 06:54) Oximetry (04/24/17 06:54) Drug Screen, Random Urine (04/24/17 06:54) Alcohol (Ethanol) (04/24/17 06:54) Sodium Chlor 0.9% 1000 Ml Inj (Ns 1000 M (04/24/17 07:00) Ondansetron Inj (Zofran Inj) (04/24/17 07:00) Pantoprazole Inj (Protonix Inj) (04/24/17 07:00) CKMB (04/24/17 07:00) CKMB% (04/24/17 07:00) Al-Mag Hy-Si 40-40-4 Mg/Ml Liq (Mag-Al P (04/24/17 08:00) Zfuiq-Uxsyln-Neyttp-Pb Liq ( Liq (04/24/17 08:00) Labs Laboratory Tests Test 04/24/17 04/24/17 07:00 07:27 White Blood Count 10.3 TH/MM3 Red Blood Count 5.75 MIL/MM3 Hemoglobin 16.5 GM/DL Hematocrit 49.5 % Mean Corpuscular Volume 86.2 FL Mean Corpuscular Hemoglobin 28.7 PG Mean Corpuscular Hemoglobin 33.3 % Concent Red Cell Distribution Width 14.7 % Platelet Count 267 TH/MM3 Mean Platelet Volume 7.8 FL Neutrophils (%) (Auto) 72.6 % Lymphocytes (%) (Auto) 20.2 % Monocytes (%) (Auto) 5.1 % Eosinophils (%) (Auto) 1.2 % Basophils (%) (Auto) 0.9 % Neutrophils # (Auto) 7.5 TH/MM3 Lymphocytes # (Auto) 2.1 TH/MM3 Monocytes # (Auto) 0.5 TH/MM3 Eosinophils # (Auto) 0.1 TH/MM3 Basophils # (Auto) 0.1 TH/MM3 CBC Comment DIFF FINAL Differential Comment Sodium Level 139 MEQ/L Potassium Level 4.1 MEQ/L Chloride Level 110 MEQ/L Carbon Dioxide Level 20.4 MEQ/L Anion Gap 9 MEQ/L Blood Urea Nitrogen 12 MG/DL Creatinine 1.03 MG/DL Estimat Glomerular Filtration 100 ML/MIN Rate Random Glucose 74 MG/DL Calcium Level 8.7 MG/DL Total Bilirubin 0.3 MG/DL Aspartate Amino Transf 34 U/L (AST/SGOT) Alanine Aminotransferase 40 U/L (ALT/SGPT) Alkaline Phosphatase 60 U/L Total Creatine Kinase 494 U/L Creatine Kinase MB 1.9 NG/ML Creatine Kinase MB % 0.4 % Troponin I LESS THAN 0.02 NG/ML Total Protein 8.5 GM/DL Albumin 4.2 GM/DL Lipase 342 U/L Ethyl Alcohol Level 233 MG/DL Urine Color YELLOW Urine Turbidity CLEAR Urine pH 5.0 Urine Specific Bricelyn 1.013 Urine Protein NEG mg/dL Urine Glucose (UA) NEG mg/dL Urine Ketones NEG mg/dL Urine Occult Blood TRACE Urine Nitrite NEG Urine Bilirubin NEG Urine Urobilinogen LESS THAN 2.0 MG/DL Urine Leukocyte Esterase NEG Urine RBC LESS THAN 1 /hpf Urine WBC 3 /hpf Urine Hyaline Casts 1 /lpf Microscopic Urinalysis Comment CULT NOT INDICATED Urine Opiates Screen NEG Urine Barbiturates Screen NEG Urine Amphetamines Screen NEG Urine Benzodiazepines Screen NEG Urine Cocaine Screen POS Urine Cannabinoids Screen POS [facility] Supervised Visit with CLAYTON: No Interpretation(s) Last Impressions Chest X-Ray 04/24/17 0654 Signed Impressions: Service Date/Time: Monday, April 24, 2017 06:53 - CONCLUSION: No acute disease. Biju Simental MD 8:04 AM. CBC within normal limit. CMP within normal limit. Total CK 494. Cardiac enzymes are normal. Urine drug screen positive for cocaine, cannabis. Alcohol 233. UA is negative. Narrative Course Maalox 30 cc by mouth. 10 cc by mouth. Diagnosis Primary Impression: Abdominal pain Qualified Code: R10.9 - Abdominal pain, unspecified location Additional Impressions: Polysubstance abuse Vomiting Qualified Code: R11.2 - Nausea and vomiting, intractability of vomiting not specified, unspecified vomiting type Patient Instructions: General Instructions Additional Instruction: Advised [facility] for substance abuse. Take medications as directed. Follow-up with local physician. Return if worse. Med/Other Pt SpecificInfo: Prescription(s) given Scripts Dicyclomine (Bentyl)10 Mg Cap10 Mg PO TID PRN (Bowel Management) #21 CAP Ref 0 Prov:Mikey Multani MD 04/24/17 Sucralfate (Carafate)1 Gm Tab1 Gm PO QID #120 TAB Ref 0 On empty stomach Prov:Mikey Multani MD 04/24/17 Pantoprazole (Protonix)20 Mg Tab20 Mg PO DAILY #30 TAB Prov:Mikey Multani MD 04/24/17 Disposition: 01 DISCHARGE HOME Condition: Stable Mikey Multani MD Apr 24, 2017 08:06
[2017-04-24 08:09] VITALS: BP 155/90; PULSE 102; RESP 18; O2SAT 99
--- NOTE | 2017-04-24 19:37 | EKG ---
Date Performed: 04/24/2017 Time Performed: 07:02:00 PTAGE: 36 years EKG: SINUS TACHYCARDIA ST ELEVATION, PROBABLY EARLY REPOLARIZATION ABNORMAL RHYTHM ECG PREVIOUS TRACING 10/22/2016 11.36.38 Since previous tracing, no significant change noted DOCTOR: Grisel Brewster Interpretating Date/Time 04/24/2017 19:36:15
== END 2017-04-24 08:24 | disposition home or self-care (01) ==
LOC: NEPE 06:46
DX: R10.13 Epigastric pain (principal); R11.2 Nausea with vomiting, unspecified; F19.10 Other psychoactive substance abuse, uncomplicated
CPT/HCPCS: 71010; 80053; 80307; 81001; 82550; 82552; 83690; 84484; 85025; 93005; 96361; 96374; 96375; 99285; C9113; J2405; J7030

== ENCOUNTER 2017-06-05 15:12 | Emergency (ER) | payer SELFPAY ==
[~2017-06-05 15:12] MED LIST changes: +CARA1TAB6 PO; +DICY10 PO; -IBUP-232 PO; +PANT20 PO; -ZANT150T2 PO
[2017-06-05 15:17] VITALS: BP 142/87; PULSE 102; RESP 22; TEMP 98.4; O2SAT 96
--- NOTE | 2017-06-05 15:28 | PD ---
Physical Exam Date Seen by Provider: Jun 05, 2017 Time Seen by Provider: 15:22 Narrative Pt is a 36 year old male presenting to the ED for evaluation of epigastric abdominal pain. Pt reports a hx of ulcers. Pain is consistent with this. His real reason he is here is for the loss of his voice, shortness of breath. He reports he had a runny nose prior to losing his voice. He reports fevers, nausea and vomiting. He starts talking randomly about his ex and money. Pt reports daily tobacco use. VSS, awaiting bed placement. Data Data Last Documented VS Vital Signs Date Time Temp Pulse Resp B/P (MAP) Pulse Ox O2 Delivery O2 Flow Rate FiO2 06/05/17 15:17 98.4 102 22 142/87 (105) 96 MDM Supervised Visit with CLAYTON: Annia Alcocer Jun 05, 2017 15:28
--- NOTE | 2017-06-05 16:08 | PD ---
HPI Chief Complaint: Respiratory Symptoms Time Seen by Provider: 15:33 Travel History International Travel<30 days: No Contact w/Intl Traveler<30days: No Traveled to known affect area: No History of Present Illness HPI This patient complains of losing his voice. But he is a very poor and challenging historian. He admits to drinking a lot of alcohol today and also smoking crack cocaine. He can't put together a coherent history. He is not particular cooperative. He denies having any acute pain. He denies intentional overdose or suicidal thought or depression. He's been here before for substance abuse issues. He denies productive cough or shortness of breath. Symptoms severity is mild to moderate. No alleviating factors. Duration one day PFSH Past Medical History Arthritis: No Asthma: No Anxiety: Yes Heart Rhythm Problems: No Cardiovascular Problems: Yes (HEART MURMUR) High Cholesterol: No Chest Pain: No Congestive Heart Failure: No COPD: No Cerebrovascular Accident: No Diabetes: No Diminished Hearing: No Gastrointestinal Disorders: Yes (GASTRITIS) GERD: No Genitourinary: No Headaches: No Hepatitis: No Hiatal Hernia: No Hypertension: No Kidney Stones: No Musculoskeletal: No Neurologic: No Psychiatric: Yes Reproductive: No Respiratory: No Immunizations Current: Yes Migraines: No Myocardial Infarction: No Renal Failure: No Seizures: No Sleep Apnea: No Ulcer: Yes (stomach) PNEUMOCCOCAL Vaccine (Year): 2 Past Surgical History Abdominal Surgery: No Appendectomy: No Cardiac Surgery: No Cholecystectomy: No Ear Surgery: No Endocrine Surgery: No Eye Surgery: No Genitourinary Surgery: No Neurologic Surgery: No Oral Surgery: No Thoracic Surgery: No Other Surgery: Yes (RIGHT WRIST R/T INJURY) Social History Alcohol Use: Yes (2 fifths a day and 2 cases a day) Tobacco Use: Yes (one half pack per day) Substance Use: Yes (cocaine daily, marijuana daily, ) Allergies-Medications (Allergen,Severity, Reaction): Coded Allergies: No Known Allergies (Verified , 04/06/17) Reported Meds & Prescriptions Reported Meds & Active Scripts Active Bentyl (Dicyclomine HCl) 10 Mg Cap 10 Mg PO TID PRN Carafate (Sucralfate) 1 Gm Tab 1 Gm PO QID On empty stomach Protonix (Pantoprazole Sodium) 20 Mg Tab 20 Mg PO DAILY Review of Systems General / Constitutional: No: Fever Eyes: No: Visual changes HENT: Positive: Rhinorrhea, Congestion, No: Headaches Cardiovascular: No: Chest Pain or Discomfort Respiratory: No: Shortness of Breath Gastrointestinal: No: Abdominal Pain Genitourinary: No: Dysuria Musculoskeletal: No: Pain Skin: No Rash Neurologic: No: Weakness Psychiatric: Positive: Substance Abuse, No: Depression Endocrine: No: Polydipsia Hematologic/Lymphatic: No: Easy Bruising Physical Exam Narrative GENERAL: Well-nourished, well-developed patient in no apparent distress. SKIN: Focused skin assessment reveals no rash and nodules. Skin is Warm and dry. HEAD: Atraumatic. Normocephalic. EYES: Pupils equal and round. No scleral icterus. No injection or drainage. ENT: No nasal bleeding or discharge. Mucous membranes pink and moist. Oral cavity clear with intact airway and midline uvula without swelling or exudate NECK: Trachea midline. No JVD. CARDIOVASCULAR: Regular rate and rhythm. No murmur appreciated. RESPIRATORY: No accessory muscle use. Clear to auscultation. Breath sounds equal bilaterally. No stridor GASTROINTESTINAL: Abdomen soft, non-tender, nondistended. Hepatic and splenic margins not palpable. MUSCULOSKELETAL: No obvious deformities. No clubbing. No cyanosis. No edema. NEUROLOGICAL: Awake and alert. No obvious cranial nerve deficits. Motor grossly within normal limits. Normal speech. PSYCHIATRIC: Uncooperative mood and affect; insight and judgment poor . Data Data Last Documented VS Vital Signs Date Time Temp Pulse Resp B/P (MAP) Pulse Ox O2 Delivery O2 Flow Rate FiO2 06/05/17 15:17 98.4 102 22 142/87 (105) 96 MDM Medical Decision Making Medical Screen Exam Complete: Yes Emergency Medical Condition: Yes Medical Record Reviewed: Yes Differential Diagnosis Alcohol intoxication, cocaine intoxication, laryngitis, URI Narrative Course I have reviewed the patient's electronic medical record. Patient has clear lungs without stridor or wheezing. His saturations are excellent on room air. Stable and in no distress but clearly under the influence of his alcohol and cocaine which he readily admits to taking. I am observing him for while and giving him a bit of sobering up time He will need a responsible adult to take him home to continue the sobering up process I am recommending [facility] for alcohol/drug rehabilitation evaluation Patient's presentation is consistent with an acute viral laryngitis, treatment of which is vocal rest and does not need antibiotics Diagnosis Primary Impression: Polysubstance abuse Additional Impression: Acute viral laryngitis Additional Instructions: The patient was advised to follow up with their physician and return if they worsen. Vocal rest recommended Recommend Zane Silva alcohol/drug rehabilitation evaluation Med/Other Pt SpecificInfo: Other Disposition: 01 DISCHARGE HOME Condition: Stable Francisco Fair MD Jun 05, 2017 16:08
== END 2017-06-05 17:14 | disposition home or self-care (01) ==
LOC: NEPD 15:12
DX: F19.10 Other psychoactive substance abuse, uncomplicated (principal); J04.0 Acute laryngitis; B97.89 Other viral agents as the cause of diseases classified elsewhere; F17.200 Nicotine dependence, unspecified, uncomplicated; Z86.59 Personal history of other mental and behavioral disorders; Z86.79 Personal history of other diseases of the circulatory system; Z87.19 Personal history of other diseases of the digestive system
CPT/HCPCS: 99281

== ENCOUNTER 2017-06-20 23:47 | Emergency (ER) | payer SELFPAY ==
[~2017-06-20] VITALS: Ht 167.6 cm; Wt 72.0 kg
[2017-06-20 23:49] VITALS: BP 132/87; PULSE 108; RESP 16; TEMP 98; O2SAT 98
== END 2017-06-21 00:01 | disposition left against medical advice (07) ==
LOC: NED 23:47
DX: R10.9 Unspecified abdominal pain (principal); Z53.21 Procedure and treatment not carried out due to patient leaving prior to being seen by health care provider
CPT/HCPCS: 99281

== ENCOUNTER 2017-08-12 17:16 | Emergency (ER) | payer OTHER ==
[~2017-08-12] VITALS: Ht 170.2 cm; Wt 75.0 kg
[2017-08-12 18:01] VITALS: BP 132/63; PULSE 84; RESP 22; TEMP 98.2; O2SAT 98
[2017-08-12 18:12] LABS: AUTOMATED NEUTROPHIL # 7.3 TH/MM3 (1.8-7.7); BASOPHIL # 0.1 TH/MM3 (0-0.2); EOSINOPHIL # 0.5 TH/MM3 (0-0.4); EOSINOPHIL % 4.2 % (0.0-4.0); HEMATOCRIT 46.7 % (39.0-51.0); HEMO FLAGS DIFF FINAL; LYMPH % 28.8 % (9.0-44.0); LYMPHOCYTE # 3.5 TH/MM3 (1.0-4.8); MEAN CELL VOLUME 86.5 FL (80.0-100.0); MEAN CORPUSCULAR HEMOGLOBIN 29.7 PG (27.0-34.0); MEAN CORPUSCULAR HGB CONC 34.4 % (32.0-36.0); MONO % 5.9 % (0.0-8.0); NEUT % 60.1 % (16.0-70.0); PLATELET COUNT 268 TH/MM3 (150-450); RED CELL DISTRIBUTION WIDTH 15.1 % (11.6-17.2); WHITE BLOOD COUNT 12.1 TH/MM3 (4.0-11.0)
[2017-08-12] MEDS ORDERED: HALOPERIDOL LACTATE 5 MG/ML AMP IM ONE (18:15)
--- NOTE | 2017-08-12 18:29 | PD ---
HPI Chief Complaint: Psychiatric Symptoms Time Seen by Provider: 17:27 Travel History International Travel<30 days: No Contact w/Intl Traveler<30days: No Traveled to known affect area: No History of Present Illness HPI 36-year-old male presents to the emergency room under police Suresh act after he was running in and out of traffic. Patient states he does not want to kill himself but he wants to by another person's hand. States if he kills himself he will not be able to go to [facility] but someone else kills him, he will be allowed. Patient admits to doing crack, MDMA, mass, and heroin over the past 4 days. States he drinks too much alcohol. Denies homicidal ideation. Denies any medical complaints at this time. History is somewhat limited because of patient's intoxicated state. PFSH Past Medical History Arthritis: No Asthma: No Anxiety: Yes Heart Rhythm Problems: No Cardiovascular Problems: Yes (HEART MURMUR) High Cholesterol: No Chest Pain: No Congestive Heart Failure: No COPD: No Cerebrovascular Accident: No Diabetes: No Diminished Hearing: No Gastrointestinal Disorders: Yes (GASTRITIS) GERD: No Genitourinary: No Headaches: No Hepatitis: No Hiatal Hernia: No Hypertension: No Kidney Stones: No Musculoskeletal: No Neurologic: No Psychiatric: Yes Reproductive: No Respiratory: No Immunizations Current: Yes Migraines: No Myocardial Infarction: No Renal Failure: No Seizures: No Sleep Apnea: No Ulcer: Yes (stomach) PNEUMOCCOCAL Vaccine (Year): 2 Past Surgical History Abdominal Surgery: No Appendectomy: No Cardiac Surgery: No Cholecystectomy: No Ear Surgery: No Endocrine Surgery: No Eye Surgery: No Genitourinary Surgery: No Neurologic Surgery: No Oral Surgery: No Thoracic Surgery: No Other Surgery: Yes (RIGHT WRIST R/T INJURY) Social History Alcohol Use: Yes (2 fifths a day and 2 cases a day) Tobacco Use: Yes (one half pack per day) Substance Use: Yes (cocaine, ectasy, moly ) Allergies-Medications (Allergen,Severity, Reaction): Coded Allergies: No Known Allergies (Verified , 04/06/17) Reported Meds & Prescriptions Reported Meds & Active Scripts Active Bentyl (Dicyclomine HCl) 10 Mg Cap 10 Mg PO TID PRN Carafate (Sucralfate) 1 Gm Tab 1 Gm PO QID On empty stomach Protonix (Pantoprazole Sodium) 20 Mg Tab 20 Mg PO DAILY Review of Systems Except as stated in HPI: all other systems reviewed are Neg Physical Exam Narrative GENERAL: Well-nourished, well-developed male in no acute distress. Afebrile. Ambulatory. Aggressive with staff. SKIN: Focused skin assessment warm/dry. HEAD: Normocephalic. EYES: No scleral icterus. No injection or drainage. NECK: Supple, trachea midline. No JVD or lymphadenopathy. CARDIOVASCULAR: Regular rate and rhythm without murmurs, gallops, or rubs. RESPIRATORY: Breath sounds equal bilaterally. No accessory muscle use. PSYCHIATRIC: No delusional thought processes. No hallucinations. Manic. Pressured speech. Data Data Last Documented VS Vital Signs Date Time Temp Pulse Resp B/P (MAP) Pulse Ox O2 Delivery O2 Flow Rate FiO2 08/12/17 18:01 98.2 84 22 132/63 (86) 98 Orders Orders Complete Blood Count With Diff (08/12/17 17:36) Comprehensive Metabolic Panel (08/12/17 17:36) Psych Screen (08/12/17 17:36) Drug Screen, Random Urine (08/12/17 17:36) Alcohol (Ethanol) (08/12/17 17:36) Salicylates (Aspirin) (08/12/17 17:36) Tylenol (Acetaminophen) (08/12/17 17:36) Restraints Non-Violent BONIFACIO.Q3H (08/12/17 17:36) Haloperidol Inj (Haldol Inj) (08/12/17 18:15) Labs Laboratory Tests Test 08/12/17 17:43 08/12/17 17:45 White Blood Count 12.1 TH/MM3 Red Blood Count 5.40 MIL/MM3 Hemoglobin 16.0 GM/DL Hematocrit 46.7 % Mean Corpuscular Volume 86.5 FL Mean Corpuscular Hemoglobin 29.7 PG Mean Corpuscular Hemoglobin Concent 34.4 % Red Cell Distribution Width 15.1 % Platelet Count 268 TH/MM3 Mean Platelet Volume 8.1 FL Neutrophils (%) (Auto) 60.1 % Lymphocytes (%) (Auto) 28.8 % Monocytes (%) (Auto) 5.9 % Eosinophils (%) (Auto) 4.2 % Basophils (%) (Auto) 1.0 % Neutrophils # (Auto) 7.3 TH/MM3 Lymphocytes # (Auto) 3.5 TH/MM3 Monocytes # (Auto) 0.7 TH/MM3 Eosinophils # (Auto) 0.5 TH/MM3 Basophils # (Auto) 0.1 TH/MM3 CBC Comment DIFF FINAL Differential Comment Blood Urea Nitrogen 12 MG/DL Creatinine 1.12 MG/DL Random Glucose 95 MG/DL Total Protein 7.8 GM/DL Albumin 3.7 GM/DL Calcium Level 8.8 MG/DL Alkaline Phosphatase 56 U/L Aspartate Amino Transf (AST/SGOT) 32 U/L Alanine Aminotransferase (ALT/SGPT) 30 U/L Total Bilirubin 0.2 MG/DL Sodium Level 146 MEQ/L Potassium Level 3.9 MEQ/L Chloride Level 109 MEQ/L Carbon Dioxide Level 21.5 MEQ/L Anion Gap 16 MEQ/L Estimat Glomerular Filtration Rate 91 ML/MIN Salicylates Level 3.0 MG/DL Acetaminophen Level LESS THAN 2.0 MCG/ML Ethyl Alcohol Level 290 MG/DL Urine Opiates Screen NEG Urine Barbiturates Screen NEG Urine Amphetamines Screen NEG Urine Benzodiazepines Screen NEG Urine Cocaine Screen POS Urine Cannabinoids Screen POS MDM Medical Decision Making Medical Screen Exam Complete: Yes Emergency Medical Condition: Yes Medical Record Reviewed: Yes Differential Diagnosis Drug-induced mood disorder, adjustment disorder, intentional self-harm, polysubstance abuse, bipolar disorder Narrative Course 36-year-old male presents to the emergency room and a Suresh act initiated by police after he was found wandering in and out of traffic. Patient states he was trying to cause self harm by another's hand. He also admits to polysubstance abuse including heroin, crack, MDMA, and meth. Patient is not cooperative on exam. He is manic and has pressured speech. He occasionally becomes aggressive with staff. Patient was placed in 4-point locked restraints for his safety and staff safety. He was still extremely agitated and given a dose of Haldol 5 mg IM. CBC and CMP are unremarkable. Drug screen is positive for cocaine and marijuana. Patient is medically cleared for psychiatric evaluation at this time. Condition: Stable Amrita Lopez Aug 12, 2017 18:29
[2017-08-12 18:31] LABS: ALT (GPT) 30 U/L (12-78)
[2017-08-12 18:33] LABS: ANION GAP 16 MEQ/L (5-15); AST (GOT) 32 U/L (15-37); BICARBONATE 21.5 MEQ/L (21.0-32.0); BLOOD UREA NITROGEN 12 MG/DL (7-18); CHLORIDE 109 MEQ/L (98-107); GLOMERULAR FILTRATION RATE 91 ML/MIN (>89); POTASSIUM 3.9 MEQ/L (3.5-5.1); SODIUM (NA) 146 MEQ/L (136-145)
[2017-08-12 18:34] LABS: ALKALINE PHOSPHATASE 56 U/L (45-117); TOTAL BILIRUBIN ADULT 0.2 MG/DL (0.2-1.0)
[2017-08-12 18:44] LABS: ACETAMINOPHEN LESS THAN 2.0 MCG/ML (10.0-30.0); ALCOHOL 290 MG/DL (0-5)
[2017-08-12 19:00] VITALS: BP 111/56; PULSE 109; RESP 16; O2SAT 98
[2017-08-12 22:04] VITALS: BP 124/75; PULSE 103; RESP 17; TEMP 98; O2SAT 100
[2017-08-13 06:10] VITALS: BP 145/67; PULSE 88; RESP 15; O2SAT 96
[2017-08-13 11:09] VITALS: BP 115/69; PULSE 86; RESP 18; TEMP 98; O2SAT 100
--- NOTE | 2017-08-13 14:16 | PD ---
History of Present Illness Chief Complaint: Psychiatric Symptoms Time Seen by Provider: 14:15 Travel History International Travel<30 Days: No Contact w/Intl Traveler<30days: No Known affected area: No Legal Status Legal Status: Suresh Act Suresh Act Signed By: Luke Laguna History of Present Illness: 36-year-old male who presented under a Suresh act last evening, incoherent and behaving in a dangerous to self fashion. Patient is no longer intoxicated although his toxicology was reviewed. (Apparently he was positive for cocaine, cannabinoids and alcohol.) At this time, the patient has no suicidal or homicidal ideation, plan or intent. He lives in this area and would like to return home. His cognition is intact and he presents with no psychotic symptoms. He was offered [facility] referral but would prefer to go home at this time. PFS Past Medical History Arthritis: No Asthma: No Anxiety: Yes Heart Rhythm Problems: No Cardiovascular Problems: Yes (HEART MURMUR) High Cholesterol: No Chest Pain: No Congestive Heart Failure: No COPD: No Cerebrovascular Accident: No Diabetes: No Diminished Hearing: No Gastrointestinal Disorders: Yes (GASTRITIS) GERD: No Genitourinary: No Headaches: No Hepatitis: No Hiatal Hernia: No Hypertension: No Kidney Stones: No Musculoskeletal: No Neurologic: No Psychiatric: Yes Reproductive: No Respiratory: No Immunizations Current: Yes Migraines: No Myocardial Infarction: No Renal Failure: No Seizures: No Sleep Apnea: No Ulcer: Yes (stomach) PNEUMOCCOCAL Vaccine (Year): 2 Past Surgical History Abdominal Surgery: No Appendectomy: No Cardiac Surgery: No Cholecystectomy: No Ear Surgery: No Endocrine Surgery: No Eye Surgery: No Genitourinary Surgery: No Neurologic Surgery: No Oral Surgery: No Thoracic Surgery: No Other Surgery: Yes (RIGHT WRIST R/T INJURY) Psychiatric History Psychiatric History Hx Psychiatric Treatment: REPORTS BEING TREATED FOR DEPRESSION ONCE A LONG TIME AGO History of Inpatient Treatment: No Guns or firearms in home: No Social History Hx Alcohol Use: Yes (2 fifths a day and 2 cases a day) Hx Tobacco Use: Yes (one half pack per day) Hx Substance Use: Yes Substance Use Type: Alcohol, Crack, Marijuana, Ecstasy Other Substances Used: SULLY Hx of Substance Use Treatment: No Allergies-Medications (Allergen,Severity, Reaction): Coded Allergies: No Known Allergies (Verified , 04/06/17) Reported Meds & Prescriptions Reported Meds & Active Scripts Active Bentyl (Dicyclomine HCl) 10 Mg Cap 10 Mg PO TID PRN Carafate (Sucralfate) 1 Gm Tab 1 Gm PO QID On empty stomach Protonix (Pantoprazole Sodium) 20 Mg Tab 20 Mg PO DAILY Review of Systems Except as stated in HPI: all other systems reviewed are Neg Mental Status Examination Appearance: Appropriate Consciousness: Alert Orientation: x4 Motor Activity: Normal gait Speech: Unremarkable Language: Adequate Fund of Knowledge: Adequate Attention and Concentration: Adequate Memory: Unremarkable Mood: Appropriate Affect: Appropriate Thought Process & Associations: Intact Thought Content: Appropriate Hallucination Type: None Delusion Type: None Suicidal Ideation: No Suicidal Plan: No Suicidal Intention: No Homicidal Ideation: No Homicidal Plan: No Homicidal Intention: No Insight: Adequate Judgment: Adequate MDM Medical Decision Making Medical Record Reviewed: Yes Assessment/Plan Patient interviewed at bedside, medical record reviewed and case discussed with nurse Preciado. Patient denies suicidal or homicidal ideation, plan or intent. His main issue appears to be alcohol and substance abuse. He was offered referrals to [facility] but he prefers to go home. Patient's cognition is intact and he has no psychotic symptoms. He is felt to be competent to make medical decisions. Orders Orders Complete Blood Count With Diff (08/12/17 17:36) Comprehensive Metabolic Panel (08/12/17 17:36) Psych Screen (08/12/17 17:36) Drug Screen, Random Urine (08/12/17 17:36) Alcohol (Ethanol) (08/12/17 17:36) Salicylates (Aspirin) (08/12/17 17:36) Tylenol (Acetaminophen) (08/12/17 17:36) Restraints Non-Violent BONIFACIO.Q3H (08/12/17 17:36) Haloperidol Inj (Haldol Inj) (08/12/17 18:15) Diet Regular Basic (08/13/17 Breakfast) Diet Regular Basic (08/13/17 Lunch) Results Vital Signs Date Time Temp Pulse Resp B/P (MAP) Pulse Ox O2 Delivery O2 Flow Rate FiO2 08/13/17 11:09 98.0 86 18 115/69 (84) 100 Room Air 08/13/17 06:10 88 15 145/67 (93) 96 Room Air 08/12/17 22:04 98.0 103 17 124/75 (91) 100 08/12/17 19:00 109 16 111/56 (74) 98 Room Air 08/12/17 18:01 98.2 84 22 132/63 (86) 98 Laboratory Tests Test 08/12/17 17:43 08/12/17 17:45 White Blood Count 12.1 Red Blood Count 5.40 Hemoglobin 16.0 Hematocrit 46.7 Mean Corpuscular Volume 86.5 Mean Corpuscular Hemoglobin 29.7 Mean Corpuscular Hemoglobin Concent 34.4 Red Cell Distribution Width 15.1 Platelet Count 268 Mean Platelet Volume 8.1 Neutrophils (%) (Auto) 60.1 Lymphocytes (%) (Auto) 28.8 Monocytes (%) (Auto) 5.9 Eosinophils (%) (Auto) 4.2 Basophils (%) (Auto) 1.0 Neutrophils # (Auto) 7.3 Lymphocytes # (Auto) 3.5 Monocytes # (Auto) 0.7 Eosinophils # (Auto) 0.5 Basophils # (Auto) 0.1 CBC Comment DIFF FINAL Differential Comment Blood Urea Nitrogen 12 Creatinine 1.12 Random Glucose 95 Total Protein 7.8 Albumin 3.7 Calcium Level 8.8 Alkaline Phosphatase 56 Aspartate Amino Transf (AST/SGOT) 32 Alanine Aminotransferase (ALT/SGPT) 30 Total Bilirubin 0.2 Sodium Level 146 Potassium Level 3.9 Chloride Level 109 Carbon Dioxide Level 21.5 Anion Gap 16 Estimat Glomerular Filtration Rate 91 Salicylates Level 3.0 Acetaminophen Level LESS THAN 2.0 Ethyl Alcohol Level 290 Urine Opiates Screen NEG Urine Barbiturates Screen NEG Urine Amphetamines Screen NEG Urine Benzodiazepines Screen NEG Urine Cocaine Screen POS Urine Cannabinoids Screen POS Diagnosis Primary Impression: Cocaine abuse Additional Impressions: Cannabis abuse Alcohol abuse Condition: Stable Problem Qualifiers Donaldo Pennington MD Aug 13, 2017 14:16
[2017-08-13 14:56] VITALS: BP 115/69; TEMP 98
--- NOTE | 2017-08-13 15:05 | PD ---
Physical Exam Date Seen by Provider: Aug 13, 2017 Time Seen by Provider: 15:04 Narrative Patient has been cleared by psychiatry. Upon my exam, the patient states that he is not suicidal or homicidal and would like to go home. He feels safe to go home. Data Data Last Documented VS Vital Signs Date Time Temp Pulse Resp B/P (MAP) Pulse Ox O2 Delivery O2 Flow Rate FiO2 08/13/17 14:56 98.0 86 18 115/69 (84) 08/13/17 11:09 100 Room Air Orders Orders Complete Blood Count With Diff (08/12/17 17:36) Comprehensive Metabolic Panel (08/12/17 17:36) Psych Screen (08/12/17 17:36) Drug Screen, Random Urine (08/12/17 17:36) Alcohol (Ethanol) (08/12/17 17:36) Salicylates (Aspirin) (08/12/17 17:36) Tylenol (Acetaminophen) (08/12/17 17:36) Restraints Non-Violent BONIFACIO.Q3H (08/12/17 17:36) Haloperidol Inj (Haldol Inj) (08/12/17 18:15) Diet Regular Basic (08/13/17 Breakfast) Diet Regular Basic (08/13/17 Lunch) Labs Laboratory Tests Test 08/12/17 17:43 08/12/17 17:45 White Blood Count 12.1 TH/MM3 Red Blood Count 5.40 MIL/MM3 Hemoglobin 16.0 GM/DL Hematocrit 46.7 % Mean Corpuscular Volume 86.5 FL Mean Corpuscular Hemoglobin 29.7 PG Mean Corpuscular Hemoglobin Concent 34.4 % Red Cell Distribution Width 15.1 % Platelet Count 268 TH/MM3 Mean Platelet Volume 8.1 FL Neutrophils (%) (Auto) 60.1 % Lymphocytes (%) (Auto) 28.8 % Monocytes (%) (Auto) 5.9 % Eosinophils (%) (Auto) 4.2 % Basophils (%) (Auto) 1.0 % Neutrophils # (Auto) 7.3 TH/MM3 Lymphocytes # (Auto) 3.5 TH/MM3 Monocytes # (Auto) 0.7 TH/MM3 Eosinophils # (Auto) 0.5 TH/MM3 Basophils # (Auto) 0.1 TH/MM3 CBC Comment DIFF FINAL Differential Comment Blood Urea Nitrogen 12 MG/DL Creatinine 1.12 MG/DL Random Glucose 95 MG/DL Total Protein 7.8 GM/DL Albumin 3.7 GM/DL Calcium Level 8.8 MG/DL Alkaline Phosphatase 56 U/L Aspartate Amino Transf (AST/SGOT) 32 U/L Alanine Aminotransferase (ALT/SGPT) 30 U/L Total Bilirubin 0.2 MG/DL Sodium Level 146 MEQ/L Potassium Level 3.9 MEQ/L Chloride Level 109 MEQ/L Carbon Dioxide Level 21.5 MEQ/L Anion Gap 16 MEQ/L Estimat Glomerular Filtration Rate 91 ML/MIN Salicylates Level 3.0 MG/DL Acetaminophen Level LESS THAN 2.0 MCG/ML Ethyl Alcohol Level 290 MG/DL Urine Opiates Screen NEG Urine Barbiturates Screen NEG Urine Amphetamines Screen NEG Urine Benzodiazepines Screen NEG Urine Cocaine Screen POS Urine Cannabinoids Screen POS MDM Supervised Visit with [facility]: No Diagnosis Primary Impression: Cocaine abuse Additional Impressions: Alcohol abuse Cannabis abuse Patient Instructions: General Instructions, Cocaine Abuse (ED), Alcohol Use Disorder (ED) Departure Forms: Tests/Procedures Disposition: 01 DISCHARGE HOME Condition: Stable Tina Dickinson Aug 13, 2017 15:05
== END 2017-08-13 15:26 | disposition home or self-care (01) ==
LOC: NEPD 17:16 → NEPJ 08-13 15:26
DX: F14.10 Cocaine abuse, uncomplicated (principal); F12.10 Cannabis abuse, uncomplicated; F10.10 Alcohol abuse, uncomplicated; Z72.0 Tobacco use
CPT/HCPCS: 80053; 80307; 85025; 96372; 99285; J1630

== ENCOUNTER 2017-11-07 02:43 | Emergency (ER) | payer SELFPAY ==
[~2017-11-07] VITALS: Ht 177.8 cm; Wt 85.0 kg
[2017-11-07] VITALS (8 sets, daily range): BP systolic 112–152; BP diastolic 55–68; PULSE 80–97; RESP 16–18; TEMP 97.6–98; O2SAT 96–99
--- NOTE | 2017-11-07 03:15 | PD ---
HPI Chief Complaint: Alcohol/Drug Intoxication Time Seen by Provider: 03:00 Travel History International Travel<30 days: No Contact w/Intl Traveler<30days: No Traveled to known affect area: No History of Present Illness HPI 36-year-old black male presents to emergency department by EMS after being found with altered mental status at a [employer] establishment. The patient allegedly has been drinking alcohol, taking Xanax and morphine. The patient is stuporous and has a decreased gag and decreased oxygen saturation due to his decreased drive. The patient is placed on 2 L of O2 nasal cannula and placed on a monitor. There is no evidence trauma. He does arouse to noxious stimuli. He hasn't decreased gag but is grossly intact. PFS Past Medical History Arthritis: No Asthma: No Anxiety: Yes Heart Rhythm Problems: No Cardiovascular Problems: Yes (HEART MURMUR) High Cholesterol: No Chest Pain: No Congestive Heart Failure: No COPD: No Cerebrovascular Accident: No Diabetes: No Diminished Hearing: No Gastrointestinal Disorders: Yes (GASTRITIS) GERD: No Genitourinary: No Headaches: No Hepatitis: No Hiatal Hernia: No Hypertension: No Kidney Stones: No Musculoskeletal: No Neurologic: No Psychiatric: Yes Reproductive: No Respiratory: No Immunizations Current: Yes Migraines: No Myocardial Infarction: No Renal Failure: No Seizures: No Sleep Apnea: No Ulcer: Yes (stomach) PNEUMOCCOCAL Vaccine (Year): 2 Past Surgical History Abdominal Surgery: No Appendectomy: No Cardiac Surgery: No Cholecystectomy: No Ear Surgery: No Endocrine Surgery: No Eye Surgery: No Genitourinary Surgery: No Neurologic Surgery: No Oral Surgery: No Thoracic Surgery: No Other Surgery: Yes (RIGHT WRIST R/T INJURY) Social History Alcohol Use: Yes (2 fifths a day and 2 cases a day) Tobacco Use: Yes (one half pack per day) Substance Use: Yes (XANAX, MORPHINE) Allergies-Medications (Allergen,Severity, Reaction): Coded Allergies: No Known Allergies (Verified , 04/06/17) Reported Meds & Prescriptions Reported Meds & Active Scripts Active Bentyl (Dicyclomine HCl) 10 Mg Cap 10 Mg PO TID PRN Carafate (Sucralfate) 1 Gm Tab 1 Gm PO QID On empty stomach Protonix (Pantoprazole Sodium) 20 Mg Tab 20 Mg PO DAILY Review of Systems ROS Limitations: Intoxication, Altered Mental Status Physical Exam Narrative GENERAL: Well-nourished, well-developed patient. Patient is stuporous but does arouse to noxious stimuli falls back asleep. He has a decreased saturation due to decreased drive and has a decreased gag but is grossly intact. He is on a cardiac cath rn with 2 L of O2 by nasal cannula. He sitting up with his head of the bed up at 35. There is no evidence of trauma. SKIN: Warm and dry. HEAD: Normocephalic and atraumatic. EYES: No scleral icterus. No injection or drainage. ENT: No nasal drainage noted. Mucous membranes pink. Airway patent. NECK: Supple, trachea midline. Moves head freely without obvious discomfort. CARDIOVASCULAR: Regular rate and rhythm without murmurs, gallops, or rubs. RESPIRATORY: Breath sounds equal bilaterally. No accessory muscle use. GASTROINTESTINAL: Abdomen soft, non-tender, nondistended. EXTREMITIES: No cyanosis or edema. NEURO: Patient is somnolent but arouses to noxious stimuli Data Data Last Documented VS Vital Signs Date Time Temp Pulse Resp B/P (MAP) Pulse Ox O2 Delivery O2 Flow Rate FiO2 11/07/17 02:58 20 97 Room Air 11/07/17 02:54 97.6 96 114/59 (77) Orders Orders Resp Request For Service (11/07/17 03:06) Iv Access Insert/Monitor (11/07/17 03:06) Ecg Monitoring (11/07/17 03:06) Oximetry (11/07/17 03:06) Drug Screen, Random Urine (11/07/17 03:06) Alcohol (Ethanol) (11/07/17 03:06) MDM Medical Decision Making Medical Screen Exam Complete: Yes Emergency Medical Condition: Yes Medical Record Reviewed: Yes Differential Diagnosis Differential diagnoses: Alcohol intoxication, substance abuse, electrolyte abnormality, malingering Narrative Course IV access is obtained. Patient is on 2 L of O2 by nasal cannula, engine monitor. Patient is monitored and is maintaining a saturation in the high 90s with his oxygen. The patient will be monitored due to his altered mental status from polysubstance abuse. When the patient exhibits sobriety the patient they be discharged safely. If the patient attempts to leave prior to being considered medically stable he will be placed on her Marchman act. Diagnosis Primary Impression: Altered mental status Qualified Codes: R40.1 - Stupor Additional Impression: Polysubstance abuse Condition: Stable Skyler Hill Nov 07, 2017 03:15
== END 2017-11-07 09:25 | disposition home or self-care (01) ==
LOC: NEPE 02:43
DX: F19.10 Other psychoactive substance abuse, uncomplicated (principal); F17.200 Nicotine dependence, unspecified, uncomplicated; Z79.899 Other long term (current) drug therapy
CPT/HCPCS: 80307; 99283

== ENCOUNTER 2017-11-08 03:54 | Emergency (ER) | payer SELFPAY ==
[~2017-11-08] VITALS: Ht 170.2 cm; Wt 68.4 kg
[2017-11-08 03:59] VITALS: BP 130/88; PULSE 100; RESP 16; TEMP 90.4; TEMP 96.4; O2SAT 98
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
[2017-11-08 04:50] LABS: AUTOMATED NEUTROPHIL # 6.8 TH/MM3 (1.8-7.7); BASOPHIL % 0.4 % (0.0-2.0); EOSINOPHIL # 0.1 TH/MM3 (0-0.4); EOSINOPHIL % 0.7 % (0.0-4.0); HEMATOCRIT 42.9 % (39.0-51.0); HEMOGLOBIN 14.5 GM/DL (13.0-17.0); LYMPH % 23.3 % (9.0-44.0); LYMPHOCYTE # 2.3 TH/MM3 (1.0-4.8); MEAN CELL VOLUME 85.4 FL (80.0-100.0); MEAN CORPUSCULAR HEMOGLOBIN 28.9 PG (27.0-34.0); MEAN CORPUSCULAR HGB CONC 33.9 % (32.0-36.0); MEAN PLATELET VOLUME 7.8 FL (7.0-11.0); MONO % 6.2 % (0.0-8.0); MONOCYTE # 0.6 TH/MM3 (0-0.9); NEUT % 69.4 % (16.0-70.0); PLATELET COUNT 223 TH/MM3 (150-450); RED BLOOD COUNT 5.03 MIL/MM3 (4.50-5.90); RED CELL DISTRIBUTION WIDTH 15.7 % (11.6-17.2); WHITE BLOOD COUNT 9.7 TH/MM3 (4.0-11.0)
[2017-11-08 04:58] LABS: BICARBONATE 29.4 MEQ/L (21.0-32.0); CALCIUM 8.5 MG/DL (8.5-10.1); CREATININE 0.79 MG/DL (0.60-1.30)
--- NOTE | 2017-11-08 08:54 | PD ---
Physical Exam Time Seen by Provider: 08:[address] Pennington evaluated the patient and cleared the patient for discharge. Data Data Last Documented VS Vital Signs Date Time Temp Pulse Resp B/P (MAP) Pulse Ox O2 Delivery O2 Flow Rate FiO2 11/08/17 03:59 96.4 100 16 130/88 (102) 98 Room Air Orders Orders Complete Blood Count With Diff (11/08/17 04:18) Thyroid Stimulating Hormone (11/08/17 04:18) Basic Metabolic Panel (Bmp) (11/08/17 04:18) Psych Screen (11/08/17 04:18) Drug Screen, Random Urine (11/08/17 04:18) Alcohol (Ethanol) (11/08/17 04:18) Labs Laboratory Tests Test 11/08/17 04:30 White Blood Count 9.7 TH/MM3 Red Blood Count 5.03 MIL/MM3 Hemoglobin 14.5 GM/DL Hematocrit 42.9 % Mean Corpuscular Volume 85.4 FL Mean Corpuscular Hemoglobin 28.9 PG Mean Corpuscular Hemoglobin Concent 33.9 % Red Cell Distribution Width 15.7 % Platelet Count 223 TH/MM3 Mean Platelet Volume 7.8 FL Neutrophils (%) (Auto) 69.4 % Lymphocytes (%) (Auto) 23.3 % Monocytes (%) (Auto) 6.2 % Eosinophils (%) (Auto) 0.7 % Basophils (%) (Auto) 0.4 % Neutrophils # (Auto) 6.8 TH/MM3 Lymphocytes # (Auto) 2.3 TH/MM3 Monocytes # (Auto) 0.6 TH/MM3 Eosinophils # (Auto) 0.1 TH/MM3 Basophils # (Auto) 0.0 TH/MM3 CBC Comment DIFF FINAL Differential Comment Blood Urea Nitrogen 9 MG/DL Creatinine 0.79 MG/DL Random Glucose 90 MG/DL Calcium Level 8.5 MG/DL Sodium Level 142 MEQ/L Potassium Level 3.7 MEQ/L Chloride Level 107 MEQ/L Carbon Dioxide Level 29.4 MEQ/L Anion Gap 6 MEQ/L Estimat Glomerular Filtration Rate 136 ML/MIN Thyroid Stimulating Hormone 3rd Gen 0.773 uIU/ML Urine Opiates Screen NEG Urine Barbiturates Screen NEG Urine Amphetamines Screen NEG Urine Benzodiazepines Screen POS Urine Cocaine Screen POS Urine Cannabinoids Screen POS Ethyl Alcohol Level 248 MG/DL [facility] Supervised Visit with CLAYTON: No Narrative Course Dr. Pennington evaluated the patient and cleared the patient for discharge Patient contracts safety. Denies suicidal or homicidal ideations. Patient will be provided community resource packet to [facility] for follow-up. Has friends and family for support. Patient was medically cleared by alternate provider prior to psych screening. Patient has been evaluated by psychiatry and and is now cleared for discharge. Diagnosis Primary Impression: Substance induced mood disorder Additional Impressions: Alcohol intoxication Qualified Codes: F10.929 - Alcohol use, unspecified with intoxication, unspecified Polysubstance abuse Referrals: [facility] (Out patient) [facility] Primary Care Physician Psychiatrist Herlinda [facility] Patient Instructions: Abuse of Alcohol (ED), Alcohol Dependence (ED), Alcohol Intoxication (ED), General Instructions, Polysubstance Abuse (ED) Additional Instruction: Contract safety to your self and others Stop drinking alcohol Stop doing drugs Follow-up with psychiatry Follow-up with primary care provider Follow-up with Clive Valdes Return to the emergency department immediately with worsening of symptoms Med/Other Pt SpecificInfo: No Change to Meds, No Meds Exist/No RX given Scripts No Active Prescriptions or Reported Meds Disposition: 01 DISCHARGE HOME Condition: Stable Katelyn Boland Nov 08, 2017 08:54
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
== END 2017-11-08 09:05 | disposition home or self-care (01) ==
LOC: NEPD 03:54
DX: F19.94 Other psychoactive substance use, unspecified with psychoactive substance-induced mood disorder (principal); F10.129 Alcohol abuse with intoxication, unspecified; F17.200 Nicotine dependence, unspecified, uncomplicated; Y90.8 Blood alcohol level of 240 mg/100 ml or more
CPT/HCPCS: 80048; 80307; 84443; 85025; 99284

== ENCOUNTER 2018-06-20 18:46 | Inpatient (IN) ==
[2018-06-20] MEDS ORDERED: Sod Chloride 0.9% Inj 1,000 ML IV.SIG SCH (19:45)
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
[2018-06-20 20:22] LABS: Baso # (Auto) 0.1 th/mm3 (0.0-0.2); Baso % (Auto) 0.9 % (0.0-2.0); Eos # (Auto) 0.2 th/mm3 (0.0-0.4); Eos % (Auto) 1.5 % (0.0-4.0); Hematocrit 46.2 % (39.0-51.0); Hemoglobin 15.4 gm/dL (13.0-17.0); Lymph # (Auto) 2.3 th/mm3 (1.0-4.8); Lymph % (Auto) 18.6 % (9.0-44.0); Mean Corpuscular HGB Conc 33.3 % (32.0-36.0); Mean Corpuscular Volume 86.9 fL (80.0-100.0); Mean Platelet Volume 8.9 fL (7.0-11.0); Mono # (Auto) 0.6 th/mm3 (0.0-0.9); Mono % (Auto) 5.1 % (0.0-8.0); Neut # (Auto) 9.3 th/mm3 (1.8-7.7); Neut % (Auto) 73.9 % (16.0-70.0); Platelet Count 229 th/mm3 (150-450); Red Blood Count 5.32 mil/mm3 (4.50-5.90); White Blood Count 12.6 th/mm3 (4.0-11.0)
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
[2018-06-20 20:35] LABS: Albumin 4.1 g/dL (3.4-5.0); Anion Gap 11 meq/L (5-15); Aspartate Aminotransferase 38 U/L (15-37); Blood Urea Nitrogen 14 mg/dL (7-18); Calcium 8.5 mg/dL (8.5-10.1); Carbon Dioxide 23.4 meq/L (21.0-32.0); Chloride 104 meq/L (98-107); Glomerular Filtration Rate 81 mL/min (>89); Glucose,Random 79 mg/dL (74-106); Potassium 3.4 meq/L (3.5-5.1); Sodium 138 meq/L (136-145)
[2018-06-20 20:36] LABS: Alanine Aminotransferase 34 U/L (12-78)
[2018-06-20 20:38] LABS: Alkaline Phosphatase 56 U/L (45-117)
[2018-06-20] MEDS ORDERED: Ketorolac Inj 30 MG/ML (IVP) Vial IV.PUSH ONE (20:41)
--- NOTE | 2018-06-20 20:44 | CT ---
EXAM DATE: 06/20/2018 8:32 PM EDT AGE/SEX: 37 years / Male INDICATIONS: Skin lesion to upper abdomen with swelling and abdominal pain. CLINICAL DATA: This is the patient's initial encounter. Patient reports that signs and symptoms have been present for 1 day and indicates a pain score of 4/10. MEDICAL/SURGICAL HISTORY: . Schizophrenia. . Back surgery. ORAL CONTRAST: No oral contrast ingested. RADIATION DOSE: 6.15 CTDI (mGy) ; Patient motion COMPARISON: [facility] – [place], CT ABDOMEN & PELVIS W CONTRAST, 06/11/2018. . TECHNIQUE: Multiple contiguous axial images were obtained through the abdomen and pelvis following b olus infusion of 75 ml Omnipaque 350 (iohexol) nonionic water-soluble contrast as a single exam dos e. No oral contrast ingested. Using automated exposure control and adjustment of the mA and/or kV ac cording to patient size, radiation dose was kept as low as reasonably achievable to obtain optimal di agnostic quality images. DICOM format image data is available electronically for review and comparis on. FINDINGS: Lower Lungs: The visualized lower lungs are clear. Liver: The liver has a homogeneous density without space-occupying lesion. There is no dilation of th e biliary tree. The gallbladder remains unremarkable in appearance. Spleen: Homogeneous density without enlargement. Pancreas: Unremarkable without mass or calcification. Kidneys: Normal in size and shape. No evidence of mass or hydronephrosis. Adrenal Glands: Unremarkable. Aorta: The aorta and proximal iliac vessels are grossly unremarkable without aneurysmal dilation. Bowel/Mesentery: No oral contrast was given limiting the sensitivity of the exam. The bowel loops ar e grossly unremarkable. The cecum and sigmoid colon have a normal configuration. Abdominal Wall: There is a small upper anterior abdominal wall hernia containing fat. Mild adjacent soft tissue prominence in the subcutaneous fat Retroperitoneum: No evidence of adenopathy in the retrocrural, para-aortic, or deep pelvic regions. Bladder: Contours are smooth. Reproductive Organs: No abnormal masses or calcifications seen. Inguinal: The inguinal region is unremarkable without evidence of adenopathy. Bony Structures: Unremarkable. CONCLUSION: 1. Small upper anterior abdominal wall hernia containing fat with small amount of adjacent soft tiss ue density which could represent inflammation. 2. The remainder of the exam is unremarkable. Electronically signed by: Marquez Smith MD 06/20/2018 8:43 PM EDT
[2018-06-20 21:17] LABS: Amphetamine Screen,Urine Pos (Neg); Barbiturate Screen,Urine Neg (Neg); Cannabinoid Screen,Urine Pos (Neg); Cocaine Screen,Urine Pos (Neg)
[2018-06-20 21:21] LABS: Opiate Screen,Urine Neg (Neg)
[2018-06-20] MEDS ORDERED: LORazepam 1 MG Tablet PO PRN (21:49)
[2018-06-20] MEDS ORDERED: HYDROmorphone PF Inj 2 MG/ML Vial IV.PUSH PRN (22:54)
[2018-06-20] MEDS ORDERED: Acetaminophen 325 MG Tablet PO PRN (22:54)
[2018-06-20] MEDS ORDERED: Pantoprazole Inj 40 MG Vial IV.PUSH SCH (23:00)
[2018-06-20] MEDS: Sod Chloride 0.9% Inj 1,000 ML IV.CONT SCH (23:39)
[2018-06-21] MEDS ORDERED: Multivitamin Inj 10 ML, Thiamine Inj 100 MG, Folic Acid Inj 1 MG in Sodium Chlor 0.9% I... IV.SIG SCH (01:00)
[2018-06-21 07:00] LABS: Baso # (Auto) 0.1 th/mm3 (0.0-0.2); Baso % (Auto) 0.7 % (0.0-2.0); Eos # (Auto) 0.3 th/mm3 (0.0-0.4); Eos % (Auto) 3.5 % (0.0-4.0); Hematocrit 42.2 % (39.0-51.0); Lymph # (Auto) 2.2 th/mm3 (1.0-4.8); Lymph % (Auto) 22.4 % (9.0-44.0); Mean Corpuscular HGB Conc 33.2 % (32.0-36.0); Mean Corpuscular Hemoglobin 28.7 pg (27.0-34.0); Mean Corpuscular Volume 86.5 fL (80.0-100.0); Mean Platelet Volume 8.6 fL (7.0-11.0); Mono # (Auto) 0.5 th/mm3 (0.0-0.9); Mono % (Auto) 5.4 % (0.0-8.0); Neut # (Auto) 6.7 th/mm3 (1.8-7.7); Platelet Count 216 th/mm3 (150-450); Red Blood Count 4.88 mil/mm3 (4.50-5.90); Red Cell Distribution Width 13.9 % (11.6-17.2); White Blood Count 9.8 th/mm3 (4.0-11.0)
[2018-06-21 07:22] LABS: Alanine Aminotransferase 27 U/L (12-78); Albumin 2.9 g/dL (3.4-5.0); Alkaline Phosphatase 39 U/L (45-117); Anion Gap 9 meq/L (5-15); Aspartate Aminotransferase 27 U/L (15-37); Blood Urea Nitrogen 12 mg/dL (7-18); Calcium 7.8 mg/dL (8.5-10.1); Carbon Dioxide 26.1 meq/L (21.0-32.0); Chloride 110 meq/L (98-107); Glomerular Filtration Rate Greater Than 89 mL/min (>89); Glucose,Random 85 mg/dL (74-106); Potassium 3.8 meq/L (3.5-5.1); Sodium 145 meq/L (136-145); Total Protein 6.3 g/dL (6.4-8.2)
[2018-06-21 08:10] VITALS: RESP 20
[2018-06-21] MEDS: Sod Chloride 0.9% Inj 1,000 ML IV.CONT SCH (08:41)
[2018-06-21] MEDS ORDERED: Docusate Sodium 100 MG Capsule PO SCH (09:00)
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
[2018-06-21 12:55] VITALS: BP 144/76; PULSE 20; TEMP 97.9; O2SAT 99
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
--- NOTE | 2018-06-21 18:55 | ECG ---
Date Performed: 06/20/2018 Time Performed: 19:31:37 PTAGE: 37 years EKG: SINUS TACHYCARDIA WITH SHORT VT INTERVAL POSSIBLE RIGHT VENTRICULAR CONDUCTION DELAY ABNORM AL RHYTHM ECG NO PREVIOUS TRACING DOCTOR: Marino Gonzalez Interpretating Date/Time 06/21/2018 18:51:20
== END 2018-06-21 13:51 | disposition home or self-care (01) ==
LOC: NEPE 18:46 → NEDA 21:37 → N07 06-21 00:50
PROVIDERS: ADMIT Surgery; ATTEND Surgery